=== PATIENT | female | born 1950 | race Caucasian/White ===

== ENCOUNTER → 2016-07-29 | Outpatient (CLI) | payer OTHER ==
[~2016-07-29] VITALS: Ht 157.5 cm; Wt 86.2 kg
[~2016-07-29] MED LIST: ACCUNEB0.63 MG/3 IH; ACETAMINOPHEN325 M1 PO; ACID CONTROL20 MG PO; ACIDOPHILUS1 EAC3 PO; ADVAIR 100-501 EACH INH; ADVAIR 100-501 EACH PO; ALBUTEROL NEB INH; ALBUTEROL2.5 MG/31 INH; ALLOPURINOL 10100 M1 PO; ATROVENT15 ML NS; AZITHROMYCIN 2250 MG PO; B-12 DOTS500 MCG PO; CALCIUM OYSTER500 MG PO; CEFDINIR300 MG PO; CENTRUM SILVER1 EAC1 PO; CIPRO500 MG PO; COLACE100 MG PO; CYMBALTA60 MG PO; DESYREL100 MG PO; ERYTHROMYCIN E3.5 G1 OPHTHALMIC; FAMOTIDINE20 MG PO; FERREX 150150 MG PO; FISHOIL; FLAGYL500 MG PO; GABAPENTIN PO; GAVILAX17 GM PO; HYDROCHLOROTH12.5 M1 PO; HYDROCODON-ACE1 EAC5 PO; HYDROCODON-ACE1 EAC8 PO; HYDROCODONE-AP1 EA12 PO; IRON325 PO; KEFLEX500 MG PO; LEVAQUIN 500 M500 M2 PO; LEVAQUIN 500 M500 M3 PO; LINZESS290 MCG PO; LIPITOR 10 MG10 M1 PO; LIPITOR20 MG PO; LISINOPRIL-HCT1 EACH PO; LISINOPRIL10 MG PO; MAGNESIUM GLUC250 MG PO; MAGNESIUM100 MG PO; MOM PO; NAPROSYN500 MG PO; NASONEX17 GM NASAL; NEFAZODONE HCL PO; NEFAZODONE HCL100 MG PO; NEFAZODONE HCL50 MG PO; NEFAZODONE PO; NEURONTIN 300300 M1 PO; NEURONTIN600 MG PO; NEXIUM 40 MG CA40 M1 PO; NEXIUM40 MG PO; NIFEREX100 MG/5 M PO; NORCO 10-325 T1 EACH PO; NORCO 5-325 TA1 EACH PO; OXCARBAZEPINE300 MG PO; OXYCODON-ACETA1 EACH PO; OXYCODONE HCL5 M1 PO; OXYCODONE-APAP1 EAC6 PO; PATANOL5 ML OPHTHALMIC; PERCOCET 7.5-51 EACH PO; PHENERGAN 25 MG25 M1 PO; POTASSIUM20; POTASSIUM20 PO; PREDNISONE 10 M10 M1; PREDNISONE 10 M10 M1 PO; PREDNISONE 20 M20 MG PO; PREMARIN0.3 MG PO; PRILOSEC 20 MG20 MG PO; PROAIR HFA8.5 GM INH; PROCRIT20000 UNIT IJ; SENNA PO; SINGULAIR 10 MG10 M1 PO; SINGULAIR PO; TOPAMAX 100 MG100 MG PO; TOPAMAX PO; TOPAMAX50 MG PO; TRAZODONE 150150 M1 PO; TRAZODONE HCL100 MG PO; TYLENOL325 MG PO; Trazodone PO; ULTRAM 50MG TAB50 MG PO; VALACYCLOVIR1000 MG PO; VITAMIN D 5050000 I1 PO; VITAMIN D1000 UNI1 PO; ZANAFLEX2 M1 PO; ZANAFLEX4 M1 PO; ZESTORETIC 10-1 EACH PO; ZPAK PO; ZYRTEC10 MG PO; [UNRECOGNIZED DRUG - OTHER] PO
--- NOTE | ~2016-07-29 | HPC ---
[facility] [address] [place] [address] PAIN MANAGEMENT CONSULTATION Name: MEERA SHEPARD [facility] [id number] Admission: 07/29/16 Attend Phys: Nile Leyva MD Discharge: Date of : 54 Report #: [id number] THIS REPORT FOR: //name// CC: Nile Dean DATE OF SERVICE: 07/29/2016 REASON FOR VISIT: Followup visit for chronic low back pain, post-laminectomy syndrome with radiculopathy. Multiple comorbidities. HISTORY OF PRESENT ILLNESS: The patient returns to the pain clinic today requesting an epidural injection. I provided her with injections on a periodic basis to help improve her daily activities and function. She received 3 injections in 2015. I had a long discussion with her today and her Medicaid-provided caregiver about the importance of daily activity. Movement is a sprague to remaining functional. I have encouraged her to daily walk and exercises and she has been given once again some simple exercises that she can perform, even chair exercises. She has a number of other comorbidities, so her activity level will be limited, but she should do her best to try not to be too sedentary, this will help her back and her leg pain. Pain currently in her back and legs is described as a level 7, chronic and aching. It is worse with walking, prolonged sitting, prolonged standing and activities. She gets relief with medication, resting and injections. PAST MEDICAL HISTORY: Significant for pseudotumor cerebri. She has had right hip replacement and has osteoarthritis in multiple joints including shoulders and hips. She is treated for hypertension, chronic kidney disease, COPD, asthma, obstructive sleep apnea, fibromyalgia, irritable bowel syndrome and diverticulitis. She is morbidly obese. REVIEW OF SYSTEMS: Positive for chronic constipation, limited activity, challenges with bowel and bladder function. She has not fallen recently and does not appear to be a current fall risk. She moves carefully. PHYSICAL EXAMINATION: GENERAL: The patient is 5 feet 2 inches, 190 pounds with a BMI of 34.7. Blood pressure is 134/77, heart rate is 81 and respirations are 20. She has mild inspiratory and expiratory wheezing. CARDIAC: Rhythm is regular. ABDOMEN: Morbidly obese and tender. She has diffuse tenderness across her low back, especially around her scar. Straight leg raising bilaterally reproduces radicular symptoms in a broad distribution into the legs. Sensation is intact. [facility] [address] [place] [address] PAIN MANAGEMENT CONSULTATION Name: MEERA SHEPARD [facility] #: [facility] [id number] Admission: 07/29/16 Attend Phys: Nile Leyva MD Discharge: Date of : 54 Report #: [id number] She is able to move from sitting to standing position, ambulate without a cane. She turns and pivots without fall signs. IMPRESSION: 1. Chronic intractable low back pain with radiculopathy. 2. Other pain generators including osteoarthritis of multiple joints, status post hip replacement, now complaining of pain in shoulders and knees. 3. History of fibromyalgia. 4. Chronic obstructive pulmonary disease. 5. Pseudotumor cerebri. 6. Chronic kidney disease. PLAN: I will repeat epidural injection under fluoroscopic guidance. Potential risks and benefits reviewed. She is anxious to proceed today given the improvement that she has had with previous shots. PROCEDURE: Epidural steroid injection, L2-L3. DESCRIPTION: After both written and informed consent to include risk of spinal cord damage, increased pain, weakness and dural puncture, the patient was taken to the fluoroscopy suite, placed in the prone position. After sterile prep and drape, a skin wheal with lidocaine was raised. A 20-gauge epidural Tuohy needle was inserted in the midline at L2-L3 with good loss to resistance. Negative aspiration for cerebrospinal fluid or blood was noted. Then 1 mL of Omnipaque under biplanar fluoroscopy showed good spread within the epidural space. I used 0.5% lidocaine 3 mL and 80 mg of triamcinolone. ____ It was removed. The patient was monitored for an appropriate period of time and discharged in good and stable condition. The patient tolerated the procedure well, there were no complications. She will be seen back in the clinic in 3 months. Prescriptions were provided for 3 hydrocodone 10/325 per day under terms of an opioid agreement. She was given gabapentin 300 mg at bedtime. Plan is for urine drug screen today as part of our opioid agreement. I will review and discuss further with her after results have been obtained. <ELECTRONICALLY SIGNED> By: Nile Leyva MD 08/29/16 1130 [id number] [id number] Nile Leyva MD /nt
[2016-07-29 08:15] VITALS: BP 134/77
[2016-08-03 11:09] LABS: EER PAIN MGT INTERP FINAL (())
== END | disposition home or self-care (01) ==
LOC: PAIN 07-22 07:44
PROVIDERS: Anesthesiology Pain Medicine
DX: M54.16 Radiculopathy, lumbar region (principal); M96.1 Postlaminectomy syndrome, not elsewhere classified; G89.29 Other chronic pain; M19.90 Unspecified osteoarthritis, unspecified site; I12.9 Hypertensive chronic kidney disease with stage 1 through stage 4 chronic kidney disease, or unspecified chronic kidney disease; N18.9 Chronic kidney disease, unspecified; J44.9 Chronic obstructive pulmonary disease, unspecified; G93.2 Benign intracranial hypertension; G47.33 Obstructive sleep apnea (adult) (pediatric); M79.7 Fibromyalgia; E66.01 Morbid (severe) obesity due to excess calories; Z68.34 Body mass index [BMI] 34.0-34.9, adult; Z87.891 Personal history of nicotine dependence; Z96.641 Presence of right artificial hip joint

== ENCOUNTER 2016-10-17 15:44 | Emergency (ER) | payer OTHER ==
[~2016-10-17] VITALS: Ht 157.5 cm; Wt 86.2 kg
[2016-10-17] MEDS ORDERED: NORCO 5-325 TA1 EACH PO (18:19)
[2016-10-17 18:53] VITALS: BP 105/65
== END 2016-10-17 18:55 | disposition home or self-care (01) ==
LOC: ER 15:44
DX: S16.1XXA Strain of muscle, fascia and tendon at neck level, initial encounter (principal); M25.561 Pain in right knee; M25.562 Pain in left knee; M25.511 Pain in right shoulder; M25.512 Pain in left shoulder; I12.9 Hypertensive chronic kidney disease with stage 1 through stage 4 chronic kidney disease, or unspecified chronic kidney disease; N18.4 Chronic kidney disease, stage 4 (severe); J44.9 Chronic obstructive pulmonary disease, unspecified; G47.33 Obstructive sleep apnea (adult) (pediatric); M19.90 Unspecified osteoarthritis, unspecified site; M79.7 Fibromyalgia; G89.4 Chronic pain syndrome; K58.9 Irritable bowel syndrome, unspecified; Z90.49 Acquired absence of other specified parts of digestive tract; Z90.722 Acquired absence of ovaries, bilateral; Z90.89 Acquired absence of other organs; Z90.710 Acquired absence of both cervix and uterus; Z88.0 Allergy status to penicillin; Z88.1 Allergy status to other antibiotic agents; Z88.6 Allergy status to analgesic agent; Z88.8 Allergy status to other drugs, medicaments and biological substances; Z88.2 Allergy status to sulfonamides; Z87.891 Personal history of nicotine dependence; W19.XXXA Unspecified fall, initial encounter; Y93.89 Activity, other specified; Y92.009 Unspecified place in unspecified non-institutional (private) residence as the place of occurrence of the external cause; Y99.9 Unspecified external cause status

== ENCOUNTER → 2016-11-05 | Outpatient (CLI) | payer OTHER ==
[~2016-11-05] VITALS: Ht 157.5 cm; Wt 91.5 kg
[~2016-11-05] MED LIST changes: +OXYCODONE-ACET1 EAC2 PO
--- NOTE | ~2016-11-05 | HPC ---
[facility] [address] [place] [address] PAIN MANAGEMENT CONSULTATION Name: MEERA SHEPARD [facility]: [facility] [id number] Admission: 11/05/16 Attend Phys: Nile Leyva MD Discharge: Date of : 54 Report #: [id number] THIS REPORT FOR: //name// CC: Nile Dean DATE OF SERVICE: 11/05/2016 Followup visit for chronic intractable low back pain with radiculopathy. The patient returns to pain clinic today complaining primarily bilateral shoulder pain. She has severe osteoarthritis of multiple joints; the shoulders are very much limiting her activities of daily living. She scores it as a 9-10/10. She is on multiple medications including gabapentin, oxycodone, which we provide her under terms of the agreement. Urine drug screen has been reviewed from her last visit and is appropriate for medication. Most of her pain today in her shoulders is limiting her ability to perform simple activities of daily living with internal and external rotation. She is not a surgical candidate. PHYSICAL EXAMINATION: Morbidly obese female, BMI of 36.9. Blood pressure 144/72, heart rate 82, respirations 20. She has pain in both shoulders with tenderness and crepitus. The internal and external rotation are performed only to 50%. She is unable to abduct her arms without severe pain. Creative Specialist strength, biceps strength are reduced. She has difficulty with pushing maneuvers as well, affecting her triceps muscle. IMPRESSION: 1. Chronic intractable pain with multiple pain generators including low back with radiculopathy and pain generators include osteoarthritis of multiple joints, bilateral shoulders, knees and hips. Today, her shoulders are most predominant. 2. Fibromyalgia. 3. Chronic obstructive pulmonary disease. 4. Pseudotumor cerebri. 5. Chronic kidney disease. RECOMMENDATION: Bilateral shoulder injections. PROCEDURE: Skin was prepped with ChloraPrep first on the left, a 25-gauge needle advanced into the shoulder joint easily. After negative aspiration, I injected 4 mL of 0.5% bupivacaine mixed with 40 mg triamcinolone. Needle was removed. I then injected the opposite shoulder with the similar technique. She [facility] [address] [place] [address] PAIN MANAGEMENT CONSULTATION Name: MEERA SHEPARD [facility] #: [facility] [id number] Admission: 11/05/16 Attend Phys: Nile Leyva MD Discharge: Date of : 54 Report #: [id number] tolerated the injections well and pain was reduced by over 75% at discharge. Followup visit is planned as needed. By: [id number] Nile Leyva MD /nt
[2016-11-05 08:43] VITALS: BP 144/72
== END | disposition home or self-care (01) ==
LOC: PAIN 07:00
DX: M19.012 Primary osteoarthritis, left shoulder (principal); M19.011 Primary osteoarthritis, right shoulder; G89.29 Other chronic pain; M54.16 Radiculopathy, lumbar region; M17.0 Bilateral primary osteoarthritis of knee; M16.0 Bilateral primary osteoarthritis of hip; M79.7 Fibromyalgia; J45.909 Unspecified asthma, uncomplicated; J44.9 Chronic obstructive pulmonary disease, unspecified; N18.9 Chronic kidney disease, unspecified; G93.2 Benign intracranial hypertension; F11.20 Opioid dependence, uncomplicated; E66.01 Morbid (severe) obesity due to excess calories; Z68.36 Body mass index [BMI] 36.0-36.9, adult; Z87.891 Personal history of nicotine dependence

== ENCOUNTER → 2016-11-05 | Outpatient (CLI) | payer OTHER ==
[2016-11-05 10:00] VITALS: BP 118/67
[2016-11-05 10:15] LABS: HEMATOCRIT 29.1 % (37.0-47.0); HEMOGLOBIN 9.9 gm/dL (12.0-15.0)
[2016-11-05 10:25] LABS: CALCIUM 8.9 mg/dL (8.5-10.1); POTASSIUM 4.2 mmol/L (3.5-5.1)
[2016-11-05 10:28] LABS: PHOSPHORUS 3.8 mg/dL (2.5-4.9)
== END ==
LOC: OPONC 06:26
PROVIDERS: Hospitalist
DX: N18.3 Chronic kidney disease, stage 3 (moderate) (principal); D63.1 Anemia in chronic kidney disease
CPT/HCPCS: 95112

== ENCOUNTER → 2016-11-30 | Outpatient (CLI) | payer OTHER | LOC: MRI 08:58 | DX: M75.102 Unspecified rotator cuff tear or rupture of left shoulder, not specified as traumatic (principal); S46.011A Strain of muscle(s) and tendon(s) of the rotator cuff of right shoulder, initial encounter; X58.XXXA Exposure to other specified factors, initial encounter; Y93.89 Activity, other specified; Y92.89 Other specified places as the place of occurrence of the external cause; Y99.8 Other external cause status ==

== ENCOUNTER → 2016-12-10 | Outpatient (CLI) | payer OTHER ==
[2016-12-10 09:27] LABS: HEMATOCRIT 34.9 % (37.0-47.0); HEMOGLOBIN 11.5 gm/dL (12.0-15.0)
[2016-12-10 09:53] LABS: % SATURATION 33 % (20-39); IRON 74 ug/dL (50-170); TIBC 222 ug/dL (250-450); UIBC 148 ug/dL
== END ==
LOC: OPONC 06:22
PROVIDERS: Hospitalist
DX: N18.3 Chronic kidney disease, stage 3 (moderate) (principal)

== ENCOUNTER 2017-01-01 15:43 | Emergency (ER) | payer OTHER ==
[~2017-01-01] VITALS: Ht 157.5 cm; Wt 86.2 kg
[2017-01-01 16:42] LABS: URINE BLOOD NEGATIVE (Negative); URINE COLOR YELLOW; URINE GLUCOSE-RANDOM* NEGATIVE (Negative); URINE KETONES TRACE (Negative); URINE NITRITE NEGATIVE (Negative); URINE PROTEIN (DIPSTICK) NEGATIVE (Negative); URINE SPECIFIC GRAVITY 1.025 (1.003-1.035); URINE UROBILINOGEN 0.2 E.U./dl (0.2-1.0)
[2017-01-01 16:44] LABS: URINE BILIRUBIN NEGATIVE (Negative)
[2017-01-01 17:03] LABS: SQUAMOUS 4-10 Moderate /LPF (0-3)
[2017-01-01 17:04] LABS: BACTERIA 1-9 Few /HPF (None Seen); CRYSTALS None Seen /LPF (None Seen); URINE RBC None Seen /HPF (0-2); URINE WBC 0-5 Rare /HPF (0-5)
[2017-01-01 17:05] LABS: CASTS None Seen /LPF (None Seen)
[2017-01-01 17:07] LABS: ABSOLUTE NEUTROPHILS 4.9 thou/uL (1.4-8.2); BASOPHILS 0.9 % (0.0-2.0); EOSINOPHILS 7.7 % (0.0-3.0); HEMATOCRIT 33.9 % (37.0-47.0); HEMOGLOBIN 11.2 gm/dL (12.0-15.0); LYMPHOCYTES 17.9 % (24.0-44.0); MCH 33.2 pg (26.0-34.0); MCHC 33.1 g/dL (28.0-37.0); MCV 100.3 fL (80.0-100.0); MONOCYTES 6.9 % (1.0-8.0); PLATELET COUNT 244 thou/uL (150-400); POLYS 66.6 % (36.0-66.0); RBC 3.38 mil/uL (4.20-5.00); RDW 14.5 % (10.5-14.5); WBC 7.4 thou/uL (4.0-11.0)
[2017-01-01 17:09] LABS: MANUAL DIFF NO
[2017-01-01 17:15] LABS: CALCIUM 9.3 mg/dL (8.5-10.1); POTASSIUM 4.4 mmol/L (3.5-5.1)
[2017-01-01 17:19] LABS: ALBUMIN 3.3 g/dL (3.4-5.0); TOTAL BILIRUBIN 0.3 mg/dL (<0.1-1.0); TOTAL PROTEIN 6.7 g/dL (6.4-8.2)
[2017-01-01] MEDS ORDERED: KEFLEX500 MG PO (18:36)
[2017-01-01 19:07] VITALS: BP 115/55
== END 2017-01-01 19:08 | disposition home or self-care (01) ==
LOC: ER 15:43
PROVIDERS: Nurse Practitioner Family
DX: K59.00 Constipation, unspecified (principal); N39.0 Urinary tract infection, site not specified; J45.909 Unspecified asthma, uncomplicated; J44.9 Chronic obstructive pulmonary disease, unspecified; I12.9 Hypertensive chronic kidney disease with stage 1 through stage 4 chronic kidney disease, or unspecified chronic kidney disease; N18.4 Chronic kidney disease, stage 4 (severe); Z96.641 Presence of right artificial hip joint; Z90.49 Acquired absence of other specified parts of digestive tract; Z90.722 Acquired absence of ovaries, bilateral; Z90.710 Acquired absence of both cervix and uterus; M19.90 Unspecified osteoarthritis, unspecified site; Z98.890 Other specified postprocedural states; Z87.891 Personal history of nicotine dependence; Z88.1 Allergy status to other antibiotic agents; Z88.0 Allergy status to penicillin; Z88.2 Allergy status to sulfonamides; Z88.8 Allergy status to other drugs, medicaments and biological substances; Z88.7 Allergy status to serum and vaccine

== ENCOUNTER 2017-01-11 08:38 | Inpatient (IN) | payer OTHER ==
[~2017-01-11] VITALS: Ht 157.5 cm; Wt 96.6 kg
--- NOTE | ~2017-01-11 | 2DMMODE ---
[facility] [address] [place] [address] 2 D/M-MODE ECHOCARDIOGRAM Name: DEVYNDARYLBETH Rhoades Room #: 456-P ADM IN M.R.#: [id number] Admission: 01/11/17 Attend Phys: Verona Barajas Discharge: Date of : 54 Date of Service: 01/12/17 1247 Report #: [id number] THIS REPORT FOR: //name// APPROVED REPORT Study performed: 01/12/2017 10:24:41 EXAM: Comprehensive 2D, Doppler, and color-flow Echocardiogram Patient Location: Echo lab Room #: [facility] Status: routine Other Information Study Quality: Adequate/low parasternal window. Indications Chest pain. Hx: COPD, HTN 2D Dimensions RVDd: 31.92 mm LVEF(%): 79.59 (>50%) IVSd: 9.70 (7-11mm) LVOT Diam: 19.87 (18-24mm) LVDd: 47.41 mm PWd: 10.89 (7-11mm) LVDs: 24.55 (25-40mm) Aortic Root: 34.29 mm Gonzalez's LVEF: 79.59 % Volumes Left Atrial Volume (Systole) Single Plane 4CH: 53.92 mL Single Plane 2CH: 34.55 mL LA ESV Index: 26.00 mL/m2 Aortic Valve AoV Peak Jacob.: 1.67 m/s AO Peak Gr.: 11.12 mmHg LVOT Max P.85 mmHg LVOT Max V: 1.49 m/s BELEN Vmax: 2.77 cm2 Mitral Valve E/A Ratio: 0.6 MV Decel. Time: 345.98 ms MV E Max Jacob.: 0.69 m/s MV A Jacob.: 1.09 m/s MV PHT: 100.34 ms IVRT: 96.89 ms [facility] [place] [address] 2 D/M-MODE ECHOCARDIOGRAM Name: MEERA SHEPARD Room #: 456-P [facility].#: [id number] Admission: 01/11/17 Attend Phys: Verona Barajas Discharge: Date of : 54 Date of Service: 01/12/17 1247 Report #: [id number] Pulmonary Valve PV Peak Jacob.: 1.24 m/s PV Peak Gr.: 6.14 mmHg Pulmonary Vein P Vein S: 0.66 m/s P Vein A: 0.41 m/s P Vein D: 0.51 m/s P Vein A Dur.: 138.4 msec P Vein S/D Ratio: 1.29 Tricuspid Valve RAP Estimate: 5.00 mmHg Left Ventricle The left ventricle is normal size. There is normal LV segmental wall motion. There is normal left ventricular wall thickness. Left ventricular systolic function is normal. LVEF is 60-65%. Grade I - abnormal relaxation pattern. Right Ventricle The right ventricle is normal size. The right ventricular systolic function is normal. Atria Left atrium is dilated. The right atrium size is normal. Aortic Valve Aortic valve is mildly calcified, trileaflet. No aortic regurgitation is present. There is no aortic valvular stenosis. Mitral Valve The mitral valve is normal in structure. Trace mitral regurgitation. No evidence of mitral valve stenosis. Tricuspid Valve The tricuspid valve is normal in structure. There is no tricuspid valve regurgitation noted. Pulmonic Valve The pulmonary valve is normal in structure. Trace pulmonic regurgitation. Great Vessels The aortic root is normal in size. Ascending aorta is not well visualized. IVC is normal in size and collapses >50% with inspiration. [facility] [address] [place] [address] 2 D/M-MODE ECHOCARDIOGRAM Name: MEERA SHEPARD Room #: 456-P [facility] IN ..#: [id number] Admission: 01/11/17 Attend Phys: Verona Barajas Discharge: Date of : 54 Date of Service: 01/12/17 1247 Report #: [id number] Pericardium There is no pericardial effusion. <Conclusion> Left ventricular systolic function is normal. There is normal LV segmental wall motion. LVEF is 60-65%. Grade I diastolic dysfunction Aortic valve is mildly calcified, trileaflet. No aortic regurgitation or stenosis The mitral valve is normal in structure. Trace mitral regurgitation. Pulmonary artery pressure could not be reliably ascertained There is no pericardial effusion. <ELECTRONICALLY SIGNED> By: Cisco Bartholomew MD, FACC 01/12/17 [phone] 46 Cisco Bartholomew MD, FACC /INF
--- NOTE | ~2017-01-11 | EKG ---
[place] [address] [facility] [employer] [place] [address] ELECTROCARDIOGRAM REPORT Name: MEERA SHEPARD Room #: 456-P ADM IN M.R.#: [id number] Admission: 01/11/17 Attend Phys: Evan Rossi MD Discharge: Date of : 54 Report #: [id number] THIS REPORT FOR: //name// [facility] ED Test Date: 2017-01-11 Test Time: 09:10:41 Pat Name: MEERA SHEPARD Department: Room: [facility] Gender: F Carpet Binder: DORINA Schwartz : 1950 Requested By: Evelyn Dumont Order Number: [id number] MD: Cisco Bartholomew Measurements Intervals [place] Rate: 74 P: 13 FL: 171 QRS: -29 QRSD: 88 T: 47 QT: 368 QTc: 409 Interpretive Statements Sinus rhythm Borderline left axis deviation Low voltage, extremity leads Compared to ECG 01/12/2016 23:29:25 No significant changes Electronically Signed On 01-12-2017 7:51:23 CDT by Cisco Bartholomew [email or web address] <ELECTRONICALLY SIGNED> By: Cisco Bartholomew MD, [facility] 01/12/17 0751 9 9 Cisco Bartholomew MD, [facility] /EPI
--- NOTE | ~2017-01-11 | HC ---
[facility] [place] [address] CONSULTATION Name: MEERA SHEPARD Room #: 456-P ADM IN M.R.#: [id number] Admission: 01/11/17 Attend Phys: Evan Rossi MD Discharge: Date of : 54 Report #: [id number] THIS REPORT FOR: //name// CC: Evan Dean DATE OF SERVICE: 01/11/2017 HISTORY OF PRESENT ILLNESS: The patient is a 66-year-old female who was admitted with a squeezing, gripping sort of chest pain, which have been on and off for the last couple of weeks. She was seen by Dr. Dean in the past. She went to the dermatology clinic this morning and subsequently to [facility] for urgent care with chest pain and sent to the emergency room and subsequently admitted. There has been some mild shortness of breath associated with this, not really much of an exertional component, but she is markedly overweight and a very sedentary lifestyle. There was some question of radiation to the jaw. She has never had a cardiac history and never seen cardiology before. The EKG has nonspecific changes. Her enzymes are negative. She denies PND or orthopnea. She has never had any kind of a stress test, which is somewhat surprising. No other real associated symptoms and as I stated, a very sedentary lifestyle. MEDICATIONS: She is maintained on gabapentin, Zyrtec, oxycodone, Lipitor 10, Cymbalta, tizanidine, Topamax, trazodone 100 mg at night, nefazodone, Nexium 40, lisinopril/HCT 10/12.5, Linzess, vitamin D, and Singulair. PAST MEDICAL HISTORY: Positive for hypertension, hypercholesterolemia, obesity, pseudotumor cerebri with lumbar-peritoneal shunts, followed by Dr. 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 SOCIAL HISTORY: She is . She has two children, they are in their 40s. 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 She does not drive. Prior tobacco user, quit 20 years ago. No alcohol use. FAMILY HISTORY: Negative for premature coronary disease. LABORATORY WORK: Sodium 140, potassium 4.1, and creatinine 2.0. Troponins are negative. H and H are 11.8 and 35.2 and white count 7.0. BNP was only 231. ALLERGIES: PENICILLIN, TETRACYCLINE, NSAIDS, MECLIZINE, SULFA, TETANUS, LEVAQUIN, CIPRO. PHYSICAL EXAMINATION: VITAL SIGNS: Blood pressure 132/60 and pulse 70s. [address] [address] CONSULTATION Name: MEERA SHEPARD Room #: 456-P [facility] IN M.R.#: [id number] Admission: 01/11/17 Attend Phys: Evan Rossi MD Discharge: Date of : 54 Report #: [id number] HEENT: Eyes reveal xanthelasmas. Pharynx is clear. NECK: Shows preserved upstrokes without JVD or bruits. LUNGS: Show prolonged expiratory phase, but clear. CARDIAC: Regular rate and rhythm, S1, S2 distant. ABDOMEN: Obese, nontender. EXTREMITIES: Reveal 1 to 2+ edema. Distal pulses diminished. NEUROLOGIC: Nonfocal. SKIN: Warm and dry without xanthoma or ulcer. MUSCULOSKELETAL: Valgus deformity of the knees. I did not ambulate her. ASSESSMENT: 1. Chest pain of unclear etiology, negative enzymes and EKG. 2. Morbid obesity. 3. Hypertension. 4. Hypercholesterolemia. 5. Chronic kidney disease stage 4, creatinine 2.0. 6. Reflux. 7. Degenerative joint disease. 8. Sleep apnea. RECOMMENDATIONS AND PLAN: [place] ruled out. We would proceed with echo Doppler and nuclear stress testing in the a.m. Hemodynamically, she appears to be stable. She states she has been coughing a lot with an asthma exacerbation and so certainly, may be this chest pain could be attributable to this. She states she has been coughing for weeks. We will discuss the above with primary ____ multiple risk factors for coronary disease. We will proceed with pharmacologic nuclear stress test and echo Doppler in the a.m. Thank you for asking us to assist in the care of this patient. By: [id number] Keegan Bhandari MD, FACC /nt
[2017-01-11 08:39] VITALS: BP 159/62
[2017-01-11 09:15] LABS: HEMATOCRIT 35.2 % (37.0-47.0); HEMOGLOBIN 11.8 gm/dL (12.0-15.0); MCH 33.4 pg (26.0-34.0); MCHC 33.4 g/dL (28.0-37.0); MCV 99.9 fL (80.0-100.0); RBC 3.52 mil/uL (4.20-5.00); RDW 14.2 % (10.5-14.5)
[2017-01-11] MEDS ORDERED: LINZESS72 MCG PO (09:19)
[2017-01-11] MEDS ORDERED: VITAMIN D 5050000 I1 PO (09:19)
[2017-01-11 09:26] LABS: ANION GAP 8 mmol/L (7-16); BUN 23 mg/dL (7-18); CALCIUM 9.7 mg/dL (8.5-10.1); CHLORIDE 108 mmol/L (98-107); CO2 24 mmol/L (21-32); GLUCOSE 115 mg/dL (74-106); POTASSIUM 4.1 mmol/L (3.5-5.1); SODIUM 140 mmol/L (136-145)
[2017-01-11 09:37] LABS: ALBUMIN 3.4 g/dL (3.4-5.0); ALKALINE PHOSPHATASE 96 U/L (46-116); NT-PRO BRAIN NAT PEPTIDE 231 pg/mL (<300); SGOT 21 U/L (15-37); SGPT 26 U/L (30-65); TOTAL BILIRUBIN 0.4 mg/dL (<0.1-1.0); TOTAL PROTEIN 6.9 g/dL (6.4-8.2); TROPONIN-I < 0.04 ng/mL (<0.04-0.07)
[2017-01-11 10:35] VITALS: BP 107/56
[2017-01-11 11:58] VITALS: BP 130/55
[2017-01-11 15:54] VITALS: BP 132/52
[2017-01-11 23:59] VITALS: BP 124/56
[2017-01-12 04:19] VITALS: BP 109/49
[2017-01-12 06:22] LABS: ANION GAP 9 mmol/L (7-16); BUN 29 mg/dL (7-18); CALCIUM 9.1 mg/dL (8.5-10.1); CHLORIDE 108 mmol/L (98-107); CHOLESTEROL 190 mg/dL (<200); CO2 25 mmol/L (21-32); CREATININE 2.1 mg/dL (0.6-1.0); GLUCOSE 94 mg/dL (74-106); HDL CHOLESTEROL 69 mg/dL (>40); LDL CHOLESTEROL 107 mg/dL (<100); POTASSIUM 4.3 mmol/L (3.5-5.1); SODIUM 142 mmol/L (136-145); TC:HDL 2.8 Ratio (Not establshd); TRIGLYCERIDE 73 mg/dL (<150); VLDL 15 mg/dL (<40)
[2017-01-12 06:23] LABS: SERUM ASSESSMENT Clear
[2017-01-12 08:52] VITALS: BP 143/94
[2017-01-12 12:02] VITALS: BP 140/66
[2017-01-12 16:07] VITALS: BP 135/89
[2017-01-12 20:19] VITALS: BP 106/58
[2017-01-12 23:21] VITALS: BP 117/54
[2017-01-13 03:22] VITALS: BP 103/51
[2017-01-13 04:00] VITALS: BP 94/45
[2017-01-13 07:58] VITALS: BP 89/49
[2017-01-13 11:02] VITALS: BP 91/49
[2017-01-13 12:48] VITALS: BP 91/49
== END 2017-01-13 14:21 | disposition home or self-care (01) | DRG 206 ==
LOC: ER 08:38 → EROBS 09:49 → 4W 09:49
PROVIDERS: Nurse Practitioner; Physician Assistant
PROC: 5A09357 Assistance with Respiratory Ventilation, Less than 24 Consecutive Hours, Continuous Positive Airway Pressure (ICD-10-PCS; principal; 2017-01-11)
DX: M94.0 Chondrocostal junction syndrome [Tietze] (principal); N18.4 Chronic kidney disease, stage 4 (severe); K59.09 Other constipation; F41.9 Anxiety disorder, unspecified; E78.00 Pure hypercholesterolemia, unspecified; E66.01 Morbid (severe) obesity due to excess calories; J44.9 Chronic obstructive pulmonary disease, unspecified; I12.9 Hypertensive chronic kidney disease with stage 1 through stage 4 chronic kidney disease, or unspecified chronic kidney disease; G47.33 Obstructive sleep apnea (adult) (pediatric); M19.90 Unspecified osteoarthritis, unspecified site; G89.4 Chronic pain syndrome; K58.9 Irritable bowel syndrome, unspecified; Z96.641 Presence of right artificial hip joint; Z87.891 Personal history of nicotine dependence; Z88.0 Allergy status to penicillin; Z88.1 Allergy status to other antibiotic agents; Z88.6 Allergy status to analgesic agent; Z88.2 Allergy status to sulfonamides; Z88.8 Allergy status to other drugs, medicaments and biological substances; Z87.81 Personal history of (healed) traumatic fracture; Z68.38 Body mass index [BMI] 38.0-38.9, adult; Z79.82 Long term (current) use of aspirin; Z79.899 Other long term (current) drug therapy; Z90.49 Acquired absence of other specified parts of digestive tract; Z90.722 Acquired absence of ovaries, bilateral; Z90.710 Acquired absence of both cervix and uterus; Z82.49 Family history of ischemic heart disease and other diseases of the circulatory system
CPT/HCPCS: 10045

== ENCOUNTER → 2017-02-01 | Outpatient (CLI) | payer OTHER ==
[~2017-02-01] VITALS: Ht 157.5 cm; Wt 97.1 kg
[~2017-02-01] MED LIST changes: +LINZESS72 MCG PO
[2017-02-01 09:58] VITALS: BP 135/71
== END | disposition home or self-care (01) ==
LOC: PAIN 06:48
DX: M19.011 Primary osteoarthritis, right shoulder (principal); M19.012 Primary osteoarthritis, left shoulder; G89.29 Other chronic pain; G93.2 Benign intracranial hypertension; M79.7 Fibromyalgia; N18.3 Chronic kidney disease, stage 3 (moderate); J44.9 Chronic obstructive pulmonary disease, unspecified; F11.20 Opioid dependence, uncomplicated; Z88.0 Allergy status to penicillin; Z88.8 Allergy status to other drugs, medicaments and biological substances; Z79.899 Other long term (current) drug therapy; Z98.890 Other specified postprocedural states

== ENCOUNTER → 2017-02-18 | Outpatient (CLI) | payer OTHER ==
[~2017-02-18] MED LIST changes: +PROCRIT 1010000 U/M1 IJ
[2017-02-18 08:00] VITALS: BP 111/54
[2017-02-18 08:47] LABS: HEMATOCRIT 31.3 % (37.0-47.0); HEMOGLOBIN 10.5 gm/dL (12.0-15.0)
[2017-02-18 09:08] LABS: % SATURATION 36 % (20-39); IRON 79 ug/dL (50-170); TIBC 221 ug/dL (250-450); UIBC 142 ug/dL
== END ==
LOC: OPONC 02:23 → EDSTATUS 09:30 → OPONC 15:56
PROVIDERS: Hospitalist
DX: N18.9 Chronic kidney disease, unspecified (principal); D63.1 Anemia in chronic kidney disease
CPT/HCPCS: 95112

== ENCOUNTER → 2017-04-05 | Outpatient (CLI) | payer OTHER ==
[~2017-04-05] VITALS: Ht 157.5 cm; Wt 95.3 kg
[~2017-04-05] MED LIST changes: +REMERON15 MG PO; +ROXICODONE5 M2 PO
--- NOTE | ~2017-04-05 | HPC ---
[facility] [address] [place] [address] PAIN MANAGEMENT CONSULTATION Name: MEERA SHEPARD Room #: REG [facility] Kizzy.#: [id number] Admission: 04/05/17 Attend Phys: Nile Leyva MD Discharge: Date of : 54 Report #: [id number] THIS REPORT FOR: //name// CC: Camille Pacheco DATE OF SERVICE: 04/05/2017 REASON FOR VISIT: Followup visit for chronic pain. HISTORY OF PRESENT ILLNESS: The patient is a longstanding patient. She comes in today in a wheelchair for evaluation and treatment of shoulder pain. She has responded well in the past shoulder injections with up to 3-6 months of relief. Last injection performed in my clinic, however, was just in January with only limited improvement. I have agreed to provide one more injection today. She remains on medication from our clinic under terms of an opioid agreement. I have agreed to provide her with oxycodone 5 mg twice a day. This is a total of morphine milligram equivalency of 15 mg per day, quite low and within the guidelines of CDC. In addition, she uses gabapentin 300 mg tablets 1 at bedtime. The patient has multiple underlying issues. She has become a fall risk and has fallen tripping on her oxygen tripping twice in the last month. She has difficulty with ADLs. One of her biggest issues is the inability to use her left dominant arm. She has recently had continued decline in her renal function. She has been getting Procrit injections and has not started diagnosis. There is no question that much of her difficulty is related to her COPD and her obesity. She is morbidly obese, and it is difficult for her to be mobile. PHYSICAL EXAMINATION: VITAL SIGNS: Her BMI is 38.4, blood pressure 119/61, heart rate 76. GENERAL: She is pleasant but appears to be in discomfort today. Cervical range of motion is within normal limits. CHEST: Reveals distant breath sounds. CARDIAC: Rhythm is regular. EXTREMITIES: Examination of the shoulders reveals pain with internal and external rotation and abduction. There is generalized weakness throughout the deltoid, biceps and triceps on the left. Localized tenderness in the acromioclavicular joint. [facility] [address] [place] [address] PAIN MANAGEMENT CONSULTATION Name: MEERA SHEPARD Room #: REG [facility]#: [id number] Admission: 04/05/17 Attend Phys: Nile Leyva MD Discharge: Date of : 54 Report #: [id number] IMPRESSION: Osteoarthritis, left shoulder. PROCEDURE: Injection of left shoulder with bupivacaine and 40 mg of triamcinolone. INFORMED CONSENT: The patient was placed in the sitting position. Skin was prepped with ChloraPrep, and a 25-gauge, 2-inch needle was used to perform the injection. I injected a total of 6 mL of 0.5% bupivacaine mixed with 40 mg of triamcinolone. She tolerated the procedure well. Pain was reduced at discharge. Follow up as needed. By: [id number] Nile Leyva MD /nt
[2017-04-05 08:34] LABS: HEMOGLOBIN 10.1 gm/dL (12.0-15.0)
[2017-04-05 08:48] LABS: ALBUMIN 2.9 g/dL (3.4-5.0); CALCIUM 9.1 mg/dL (8.5-10.1); POTASSIUM 3.9 mmol/L (3.5-5.1)
[2017-04-05 10:46] VITALS: BP 119/61
[2017-04-05 15:24] VITALS: BP 97/51
== END | disposition home or self-care (01) ==
LOC: PAIN 03-18 07:32
PROVIDERS: Hospitalist
DX: M19.012 Primary osteoarthritis, left shoulder (principal); Z87.891 Personal history of nicotine dependence
CPT/HCPCS: 95112

== ENCOUNTER → 2017-04-19 | Outpatient (CLI) | payer OTHER ==
[2017-04-19 08:15] VITALS: BP 116/54
== END ==
LOC: OPONC 03-18 09:08
DX: N18.4 Chronic kidney disease, stage 4 (severe) (principal); D63.1 Anemia in chronic kidney disease
CPT/HCPCS: 95112

== ENCOUNTER → 2017-05-03 | Outpatient (CLI) | payer OTHER ==
[2017-05-03 07:50] VITALS: BP 1268/75
[2017-05-03 08:08] LABS: HEMATOCRIT 33.5 % (37.0-47.0); HEMOGLOBIN 11.1 gm/dL (12.0-15.0)
[2017-05-03 08:20] LABS: % SATURATION 28 % (20-39); IRON 64 ug/dL (50-170); TIBC 225 ug/dL (250-450); UIBC 161 ug/dL
== END ==
LOC: OPONC 01-11 06:19
PROVIDERS: Hospitalist
DX: N18.4 Chronic kidney disease, stage 4 (severe) (principal); D63.1 Anemia in chronic kidney disease
CPT/HCPCS: 91016

== ENCOUNTER → 2017-08-02 | Outpatient (CLI) | payer OTHER ==
[~2017-08-02] MED LIST changes: +CENTRUM SILVER1 EAC4 PO; +CLEOCIN HCL150 MG PO; +DURAGESIC1 EACH TRANSDERM; +FIRVANQ50 MG/1 ML PO; +GLUCOSAMINE CH1 EAC2 PO; +LASIX 20 MG TAB20 MG PO; -NEFAZODONE HCL100 MG PO; +NEFAZODONE HCL200 MG PO; +OXYCODONE-ACET1 EACH PO; +PERCOCET 10-321 EACH PO; +VALACYCLOVIR500 MG PO; +VANCOCIN 250 M250 M1 PO; +VANCOMYCIN HCL125 MG PO; +VENTOLIN HFA 1818 GM INH; +VITAMIN D50000 UNIT PO
[2017-08-02 09:40] VITALS: BP 120/37
[2017-08-02 09:51] LABS: HEMATOCRIT 30.3 % (37.0-47.0); HEMOGLOBIN 9.8 gm/dL (12.0-15.0)
[2017-08-02 10:04] LABS: % SATURATION 32 % (20-39); ALBUMIN 2.7 g/dL (3.4-5.0); CALCIUM 9.2 mg/dL (8.5-10.1); CREATININE 1.9 mg/dL (0.6-1.0); IRON 54 ug/dL (50-170); PHOSPHORUS 3.3 mg/dL (2.5-4.9); POTASSIUM 3.6 mmol/L (3.5-5.1); TIBC 170 ug/dL (250-450)
== END ==
LOC: OPONC 00:40
PROVIDERS: Hospitalist
DX: N18.4 Chronic kidney disease, stage 4 (severe) (principal); D63.1 Anemia in chronic kidney disease
CPT/HCPCS: 95112

== ENCOUNTER 2017-08-27 14:51 | Inpatient (IN) | payer OTHER ==
[~2017-08-27] VITALS: Ht 157.5 cm; Wt 104.8 kg
--- NOTE | ~2017-08-27 | HC ---
[facility] [place] [address] CONSULTATION Name: MEERA SHEPARD Room #: 422-P ADM IN M.R.#: [id number] Admission: 08/27/17 Attend Phys: Jordon Crandall DO Discharge: Date of : 54 Report #: [id number] THIS REPORT FOR: //name// CC: Jonathan Dean DATE OF SERVICE: 08/28/2017 HISTORY OF PRESENT ILLNESS: The patient is a 67-year-old female who reports approximately 2-week history of chronic diarrhea. This is also associated with intermittent crampy abdominal pain. She denies any blood in her stools. Last colonoscopy was by Dr. Raffi Harrison in 2012. Prep was fair at that time, but other than diverticulosis was negative. She denies any fevers or chills. She is having up to 10 loose stools per day. Apparently, one of her grandkids had a recent gastroenteritis. She does have a previous history of irritable bowel syndrome and constipation. She denies any fevers or chills currently. No chest pain, shortness of breath. CT scan of the abdomen and pelvis on admission shows diffuse thickening involving multiple segments of the colon suggestive of a colitis. Multiple diverticula in the proximal sigmoid region, but no diverticulitis. PAST MEDICAL HISTORY: Pseudotumor cerebri, lumbar peritoneal shunt, history of hypertension, obesity, hypercholesterolemia, previous right total hip, hysterectomy, previous cholecystectomy, chronic renal insufficiency, COPD, sleep apnea, fibromyalgia, irritable bowel syndrome, plantar fasciitis, tibial plateau fracture, previous history of diverticulitis. REVIEW OF SYSTEMS: As per HPI. SOCIAL HISTORY: She denies any tobacco or alcohol use. FAMILY HISTORY: Negative for colon cancer. ALLERGIES: Multiple including PENICILLIN, TETRACYCLINE, LEVAQUIN, TETANUS, SULFA, MECLIZINE, INDOMETHACIN, IBUPROFEN, CIPROFLOXACIN. REVIEW OF SYSTEMS: As per HPI. MEDICATIONS ON ADMISSION: Cymbalta, Lipitor, Topamax, Zanaflex, Neurontin, Linzess, lisinopril, Nexium, nefazodone, allopurinol, trazodone, Geodon. PHYSICAL EXAMINATION: VITAL SIGNS: Temperature is 97.9, pulse 100, blood pressure 132/75, respiratory rate is 18. GENERAL: She is alert and oriented x 3 in no acute distress. [address] [address] CONSULTATION Name: MEERA SHEPARD Room #: 422-P [facility] IN ..#: [id number] Admission: 08/27/17 Attend Phys: Jordon Crandall DO Discharge: Date of : 54 Report #: [id number] HEENT: Sclerae nonicteric. Oropharynx clear. NECK: Supple, without lymphadenopathy. CARDIOVASCULAR: Regular rate and rhythm. CHEST: Clear to auscultation bilaterally. ABDOMEN: Soft, obese. She is nondistended. She is mildly tender in her lower quadrants bilaterally. EXTREMITIES: No cyanosis, clubbing or edema. LABORATORY DATA: Sodium 144, potassium 4.3, chloride 110, bicarbonate 25, BUN 17, creatinine 1.8, AST 14, total bilirubin 0.3, alkaline phosphatase 105, ALT is 15, total protein 5.4, albumin 2.3. WBC is 15.9, this is down from 22.4, hemoglobin 10.6, platelet count is 311. C. diff is positive. This was just recorded this afternoon. Other stool studies are either pending or negative. ASSESSMENT AND PLAN: Clostridium difficile colitis. Currently, the patient is on metronidazole IV and aztreonam. We will discontinue aztreonam and start vancomycin orally for Clostridium difficile and continue to monitor the patient's white blood cell count and continue supportive care. Thank you for allowing me to participate in her care. <ELECTRONICALLY SIGNED> By: Malik Montlavo MD 09/01/17 0821 [id number] [id number] Malik Montalvo MD /nt
[~2017-08-27 14:51] MED LIST changes: -CENTRUM SILVER1 EAC4 PO; -DURAGESIC1 EACH TRANSDERM; -FIRVANQ50 MG/1 ML PO; -GLUCOSAMINE CH1 EAC2 PO; -LASIX 20 MG TAB20 MG PO; -OXYCODONE-ACET1 EACH PO; -VALACYCLOVIR500 MG PO; -VANCOCIN 250 M250 M1 PO; -VANCOMYCIN HCL125 MG PO; -VENTOLIN HFA 1818 GM INH; -VITAMIN D50000 UNIT PO
[2017-08-27 15:19] VITALS: BP 146/69
[2017-08-27] MEDS ORDERED: NEURONTIN 300300 M1 PO (15:26)
[2017-08-27 16:55] LABS: HEMATOCRIT 34.5 % (37.0-47.0); HEMOGLOBIN 11.1 gm/dL (12.0-15.0); MCH 29.9 pg (26.0-34.0); MCHC 32.2 g/dL (28.0-37.0); MCV 92.7 fL (80.0-100.0); PLATELET COUNT 293 thou/uL (150-400); RBC 3.72 mil/uL (4.20-5.00); RDW 15.9 % (10.5-14.5); WBC 22.4 thou/uL (4.0-11.0)
[2017-08-27 17:26] LABS: ABSOLUTE NEUTROPHILS 21.1 thou/uL (1.4-8.2); ANISOCYTOSIS SLIGHT
[2017-08-27 18:15] LABS: ALBUMIN 2.3 g/dL (3.4-5.0); CALCIUM 9.1 mg/dL (8.5-10.1); CREATININE 1.9 mg/dL (0.6-1.0); POTASSIUM 3.7 mmol/L (3.5-5.1); TOTAL BILIRUBIN 0.3 mg/dL (<0.1-1.0); TOTAL PROTEIN 5.4 g/dL (6.4-8.2)
[2017-08-27 20:17] VITALS: BP 156/76
[2017-08-27 20:25] VITALS: BP 101/51
[2017-08-28 03:46] VITALS: BP 116/54
[2017-08-28 08:48] VITALS: BP 152/75
[2017-08-28 12:28] LABS: HEMATOCRIT 33.2 % (37.0-47.0); HEMOGLOBIN 10.6 gm/dL (12.0-15.0); MCHC 32.1 g/dL (28.0-37.0); MCV 93.5 fL (80.0-100.0); RBC 3.55 mil/uL (4.20-5.00); RDW 15.7 % (10.5-14.5); WBC 15.9 thou/uL (4.0-11.0)
[2017-08-28 12:40] LABS: CALCIUM 9.2 mg/dL (8.5-10.1); CREATININE 1.8 mg/dL (0.6-1.0); POTASSIUM 4.3 mmol/L (3.5-5.1)
[2017-08-28 16:00] VITALS: BP 125/55
[2017-08-28 19:15] VITALS: BP 138/53
[2017-08-29 03:43] VITALS: BP 139/68
[2017-08-29 05:31] LABS: HEMATOCRIT 33.3 % (37.0-47.0); HEMOGLOBIN 10.7 gm/dL (12.0-15.0); MCHC 32.3 g/dL (28.0-37.0); MCV 92.9 fL (80.0-100.0); PLATELET COUNT 318 thou/uL (150-400); RBC 3.58 mil/uL (4.20-5.00); RDW 15.3 % (10.5-14.5); WBC 30.3 thou/uL (4.0-11.0)
[2017-08-29 05:38] LABS: CALCIUM 8.9 mg/dL (8.5-10.1); CREATININE 1.7 mg/dL (0.6-1.0); POTASSIUM 3.5 mmol/L (3.5-5.1)
[2017-08-29 07:15] VITALS: BP 131/57
[2017-08-29 09:33] LABS: ABSOLUTE NEUTROPHILS 28.8 thou/uL (1.4-8.2)
[2017-08-29 09:34] LABS: ANISOCYTOSIS 1+; OVALOCYTES FEW
[2017-08-29 15:34] VITALS: BP 113/50
[2017-08-29 19:30] VITALS: BP 96/40
[2017-08-30 03:41] VITALS: BP 144/65
[2017-08-30 06:03] LABS: HEMATOCRIT 31.2 % (37.0-47.0); HEMOGLOBIN 10.1 gm/dL (12.0-15.0); MCH 30.1 pg (26.0-34.0); MCHC 32.5 g/dL (28.0-37.0); MCV 92.7 fL (80.0-100.0); PLATELET COUNT 288 thou/uL (150-400); RBC 3.37 mil/uL (4.20-5.00); RDW 15.4 % (10.5-14.5); WBC 28.4 thou/uL (4.0-11.0)
[2017-08-30 06:25] LABS: CREATININE 1.8 mg/dL (0.6-1.0); POTASSIUM 3.2 mmol/L (3.5-5.1)
[2017-08-30 07:51] VITALS: BP 111/38
[2017-08-30 08:41] LABS: ABSOLUTE NEUTROPHILS 26.4 thou/uL (1.4-8.2); PLATELET ESTIMATE NORMAL
[2017-08-30 14:05] VITALS: BP 132/69
[2017-08-30 20:00] VITALS: BP 110/63
[2017-08-31 03:40] VITALS: BP 123/68
[2017-08-31 04:46] LABS: HEMATOCRIT 28.8 % (37.0-47.0); HEMOGLOBIN 9.2 gm/dL (12.0-15.0); MCH 29.7 pg (26.0-34.0); MCV 92.8 fL (80.0-100.0); PLATELET COUNT 283 thou/uL (150-400); RBC 3.11 mil/uL (4.20-5.00); RDW 15.2 % (10.5-14.5); WBC 21.1 thou/uL (4.0-11.0)
[2017-08-31 04:49] LABS: CALCIUM 8.7 mg/dL (8.5-10.1); CREATININE 1.9 mg/dL (0.6-1.0); POTASSIUM 3.3 mmol/L (3.5-5.1)
[2017-08-31 06:26] LABS: ABSOLUTE NEUTROPHILS 19.6 thou/uL (1.4-8.2); PLATELET ESTIMATE NORMAL
[2017-08-31 08:09] VITALS: BP 90/46
[2017-08-31 16:30] VITALS: BP 96/42
[2017-08-31 20:08] VITALS: BP 106/46
[2017-09-01 04:33] LABS: HEMATOCRIT 30.3 % (37.0-47.0); HEMOGLOBIN 9.8 gm/dL (12.0-15.0); MCH 29.6 pg (26.0-34.0); MCHC 32.2 g/dL (28.0-37.0); PLATELET COUNT 319 thou/uL (150-400); RBC 3.29 mil/uL (4.20-5.00); RDW 15.2 % (10.5-14.5)
[2017-09-01 04:42] LABS: CALCIUM 8.6 mg/dL (8.5-10.1); CREATININE 2.2 mg/dL (0.6-1.0); POTASSIUM 3.4 mmol/L (3.5-5.1)
[2017-09-01 04:46] VITALS: BP 116/57
[2017-09-01 04:46] LABS: % SATURATION 30 % (20-39); CHOLESTEROL 91 mg/dL (<200); HDL CHOLESTEROL 63 mg/dL (>40); IRON 27 ug/dL (50-170); LDL CHOLESTEROL 22 mg/dL (<100); MAGNESIUM 1.9 mg/dL (1.8-2.4); PHOSPHORUS 3.9 mg/dL (2.5-4.9); TC:HDL 1.4 Ratio (Not establshd); TIBC 90 ug/dL (250-450); TRIGLYCERIDE 33 mg/dL (<150); VLDL 7 mg/dL (<40)
[2017-09-01 05:20] LABS: FERRITIN 184 ng/mL (8-252)
[2017-09-01 05:24] LABS: SERUM ASSESSMENT Clear
[2017-09-01 05:45] LABS: ABSOLUTE NEUTROPHILS 11.6 thou/uL (1.4-8.2); METAMYELOCYTES 1 %
[2017-09-01 09:02] VITALS: BP 103/62
[2017-09-01] MEDS ORDERED: OXYCODONE HCL5 M1 PO (13:20)
[2017-09-01 17:20] VITALS: BP 100/48
[2017-09-01 19:40] VITALS: BP 102/44; BP 123/45
[2017-09-02 07:10] VITALS: BP 102/31
[2017-09-02] MEDS ORDERED: VANCOCIN 250 M250 M1 PO (08:36)
[2017-09-02 09:09] LABS: HEMATOCRIT 32.6 % (37.0-47.0); HEMOGLOBIN 10.6 gm/dL (12.0-15.0); MCH 30.2 pg (26.0-34.0); MCHC 32.6 g/dL (28.0-37.0); MCV 92.5 fL (80.0-100.0); PLATELET COUNT 362 thou/uL (150-400); RBC 3.52 mil/uL (4.20-5.00); WBC 11.3 thou/uL (4.0-11.0)
[2017-09-02 09:16] LABS: CALCIUM 8.9 mg/dL (8.5-10.1); CREATININE 1.8 mg/dL (0.6-1.0); POTASSIUM 3.9 mmol/L (3.5-5.1)
[2017-09-02 09:25] LABS: ABSOLUTE NEUTROPHILS 7.6 thou/uL (1.4-8.2); ANISOCYTOSIS 1+; METAMYELOCYTES 2 %
[2017-09-02 10:19] VITALS: BP 102/31
[2017-10-18] MEDS ORDERED: OXYCODONE HCL5 M1 PO (16:01)
[2017-12-16] MEDS ORDERED: OXYCODONE HCL5 M1 PO (13:42)
[2017-12-16] MEDS ORDERED: DURAGESIC1 EACH TRANSDERM (13:42)
[2017-12-16] MEDS ORDERED: ROXICODONE5 M2 PO (13:42)
[2017-12-23] MEDS ORDERED: VALACYCLOVIR500 MG PO (15:17)
[2017-12-23] MEDS ORDERED: LISINOPRIL10 MG PO (15:19)
[2017-12-23] MEDS ORDERED: LASIX 20 MG TAB20 MG PO (15:20)
[2017-12-23] MEDS ORDERED: VENTOLIN HFA 1818 GM INH (15:21)
[2017-12-23] MEDS ORDERED: CENTRUM SILVER1 EAC4 PO (15:21)
[2017-12-23] MEDS ORDERED: IRON325 PO (15:22)
[2017-12-23] MEDS ORDERED: GLUCOSAMINE CH1 EAC2 PO (15:23)
[2018-02-08] MEDS ORDERED: VITAMIN D50000 UNIT PO (19:02)
[2018-02-08] MEDS ORDERED: LINZESS72 MCG PO (19:02)
[2018-02-14] MEDS ORDERED: FIRVANQ50 MG/1 ML PO (10:55)
[2018-04-07] MEDS ORDERED: OXYCODONE-ACET1 EACH PO (10:02)
[2018-04-07] MEDS ORDERED: VANCOMYCIN HCL125 MG PO (10:11)
[2018-04-11] MEDS ORDERED: OXYCODONE-ACET1 EACH PO (17:45)
== END 2017-09-02 11:45 | disposition home or self-care (01) | DRG 871 ==
LOC: ER 14:51 → 4E 19:40 → EROBS 19:40 → 4E 20:17
PROVIDERS: Family Medicine; Nurse Practitioner; Physician Assistant; Registered Nurse
DX: A41.9 Sepsis, unspecified organism (principal); E43 Unspecified severe protein-calorie malnutrition; A04.72 Enterocolitis due to Clostridium difficile, not specified as recurrent; N17.9 Acute kidney failure, unspecified; Z68.41 Body mass index [BMI] 40.0-44.9, adult; Z96.641 Presence of right artificial hip joint; N18.3 Chronic kidney disease, stage 3 (moderate); J44.9 Chronic obstructive pulmonary disease, unspecified; G47.33 Obstructive sleep apnea (adult) (pediatric); G89.4 Chronic pain syndrome; K59.00 Constipation, unspecified; E78.00 Pure hypercholesterolemia, unspecified; M19.90 Unspecified osteoarthritis, unspecified site; D64.9 Anemia, unspecified; E87.6 Hypokalemia; E66.01 Morbid (severe) obesity due to excess calories; I12.9 Hypertensive chronic kidney disease with stage 1 through stage 4 chronic kidney disease, or unspecified chronic kidney disease; Z79.899 Other long term (current) drug therapy; Z60.2 Problems related to living alone; Z90.49 Acquired absence of other specified parts of digestive tract; Z90.710 Acquired absence of both cervix and uterus; Z88.1 Allergy status to other antibiotic agents; Z90.722 Acquired absence of ovaries, bilateral; Z88.0 Allergy status to penicillin; Z88.2 Allergy status to sulfonamides; Z88.8 Allergy status to other drugs, medicaments and biological substances; Z87.891 Personal history of nicotine dependence
CPT/HCPCS: 10084

== ENCOUNTER → 2017-09-10 | Outpatient (CLI) | payer OTHER ==
[~2017-09-10] MED LIST changes: +CENTRUM SILVER1 EAC4 PO; +DURAGESIC1 EACH TRANSDERM; +FIRVANQ50 MG/1 ML PO; +GLUCOSAMINE CH1 EAC2 PO; +LASIX 20 MG TAB20 MG PO; +OXYCODONE-ACET1 EACH PO; +VALACYCLOVIR500 MG PO; +VANCOCIN 250 M250 M1 PO; +VANCOMYCIN HCL125 MG PO; +VENTOLIN HFA 1818 GM INH; +VITAMIN D50000 UNIT PO
== END ==
LOC: RAD 15:22
DX: M17.12 Unilateral primary osteoarthritis, left knee (principal)

== ENCOUNTER → 2017-09-10 | Outpatient (CLI) | payer OTHER ==
[~2017-09-10] VITALS: Ht 157.5 cm; Wt 97.5 kg
[2017-09-10 13:39] VITALS: BP 125/62
[2017-09-10 15:12] LABS: HEMATOCRIT 35.1 % (37.0-47.0); HEMOGLOBIN 11.5 gm/dL (12.0-15.0); MCH 30.5 pg (26.0-34.0); MCHC 32.8 g/dL (28.0-37.0); RBC 3.77 mil/uL (4.20-5.00); RDW 16.6 % (10.5-14.5); WBC 8.8 thou/uL (4.0-11.0)
[2017-09-10 15:37] LABS: ALBUMIN 2.7 g/dL (3.4-5.0); ANION GAP 8 mmol/L (7-16); BUN 11 mg/dL (7-18); CALCIUM 9.4 mg/dL (8.5-10.1); CHLORIDE 109 mmol/L (98-107); CHOLESTEROL 142 mg/dL (<200); CO2 26 mmol/L (21-32); CREATININE 1.8 mg/dL (0.6-1.0); GLUCOSE 101 mg/dL (74-106); HDL CHOLESTEROL 81 mg/dL (>40); LDL CHOLESTEROL 44 mg/dL (<100); POTASSIUM 4.1 mmol/L (3.5-5.1); SGOT 18 U/L (15-37); SGPT 24 U/L (30-65); SODIUM 143 mmol/L (136-145); TC:HDL 1.8 Ratio (Not establshd); TOTAL BILIRUBIN 0.4 mg/dL (<0.1-1.0); TOTAL PROTEIN 6.2 g/dL (6.4-8.2); TRIGLYCERIDE 85 mg/dL (<150); VLDL 17 mg/dL (<40)
== END ==
LOC: SEN 08:08
PROVIDERS: Nurse Practitioner Family
DX: A04.72 Enterocolitis due to Clostridium difficile, not specified as recurrent (principal); I12.9 Hypertensive chronic kidney disease with stage 1 through stage 4 chronic kidney disease, or unspecified chronic kidney disease; N18.3 Chronic kidney disease, stage 3 (moderate); I95.9 Hypotension, unspecified; J44.9 Chronic obstructive pulmonary disease, unspecified; J45.909 Unspecified asthma, uncomplicated; G47.33 Obstructive sleep apnea (adult) (pediatric); K57.30 Diverticulosis of large intestine without perforation or abscess without bleeding; M17.12 Unilateral primary osteoarthritis, left knee; D63.8 Anemia in other chronic diseases classified elsewhere; M79.7 Fibromyalgia; G93.2 Benign intracranial hypertension; R29.6 Repeated falls; Z90.722 Acquired absence of ovaries, bilateral; Z90.49 Acquired absence of other specified parts of digestive tract; Z96.641 Presence of right artificial hip joint; Z90.710 Acquired absence of both cervix and uterus

== ENCOUNTER → 2017-09-17 | Outpatient (CLI) | payer OTHER | LOC: RAD 12:12 | DX: A04.72 Enterocolitis due to Clostridium difficile, not specified as recurrent (principal) ==

== ENCOUNTER → 2017-10-29 | Outpatient (CLI) | payer OTHER ==
[~2017-10-29] MED LIST changes: -CENTRUM SILVER1 EAC4 PO; -DURAGESIC1 EACH TRANSDERM; -FIRVANQ50 MG/1 ML PO; -GLUCOSAMINE CH1 EAC2 PO; -LASIX 20 MG TAB20 MG PO; +NEFAZODONE HCL100 MG PO; -NEFAZODONE HCL200 MG PO; -OXYCODONE-ACET1 EACH PO; -VALACYCLOVIR500 MG PO; -VANCOMYCIN HCL125 MG PO; -VENTOLIN HFA 1818 GM INH; -VITAMIN D50000 UNIT PO
[2017-10-29 09:43] VITALS: BP 114/68
[2017-10-29 09:44] LABS: HEMATOCRIT 32.6 % (37.0-47.0); HEMOGLOBIN 10.6 gm/dL (12.0-15.0); MCH 30.3 pg (26.0-34.0); MCHC 32.5 g/dL (28.0-37.0); MCV 93.3 fL (80.0-100.0); RBC 3.49 mil/uL (4.20-5.00); RDW 18.1 % (10.5-14.5)
[2017-10-29 09:58] LABS: ALBUMIN 2.8 g/dL (3.4-5.0); CALCIUM 9.7 mg/dL (8.5-10.1); PHOSPHORUS 3.5 mg/dL (2.5-4.9); POTASSIUM 3.5 mmol/L (3.5-5.1)
[2017-10-29 09:59] LABS: % SATURATION 14 % (20-39); IRON 23 ug/dL (50-170); TIBC 169 ug/dL (250-450)
[2017-10-29 12:18] LABS: URINE BILIRUBIN NEGATIVE (Negative); URINE BLOOD NEGATIVE (Negative); URINE CLARITY CLEAR; URINE COLOR YELLOW; URINE GLUCOSE-RANDOM* NEGATIVE (Negative); URINE KETONES NEGATIVE (Negative); URINE LEUKOCYTES TRACE (Negative); URINE NITRITE NEGATIVE (Negative); URINE PROTEIN (DIPSTICK) NEGATIVE (Negative); URINE SPECIFIC GRAVITY 1.015 (1.005-1.035); URINE UROBILINOGEN 0.2 E.U./dl (0.2-1.0)
[2017-10-29 12:23] LABS: PROT/CREAT RATIO 0.1; URINE CREATININE-RANDOM* 139.7 mg/dL; URINE PROTEIN-RANDOM* 15.9 mg/dL (<11.9)
== END ==
LOC: OPONC 02:27
PROVIDERS: Hospitalist
DX: N18.4 Chronic kidney disease, stage 4 (severe) (principal); A04.72 Enterocolitis due to Clostridium difficile, not specified as recurrent; D63.1 Anemia in chronic kidney disease; M25.562 Pain in left knee
CPT/HCPCS: 95112

== ENCOUNTER → 2017-12-09 | Outpatient (CLI) | payer OTHER ==
[2017-12-09 12:15] LABS: CREATININE 1.6 mg/dL (0.6-1.0)
== END ==
LOC: CAT 06:13
PROVIDERS: Colon & Rectal Surgery
DX: K57.30 Diverticulosis of large intestine without perforation or abscess without bleeding (principal); N28.1 Cyst of kidney, acquired; Z90.49 Acquired absence of other specified parts of digestive tract

== ENCOUNTER → 2017-12-16 | Outpatient (CLI) | payer OTHER ==
[~2017-12-16] VITALS: Ht 162.6 cm; Wt 97.1 kg
[~2017-12-16] MED LIST changes: +DURAGESIC1 EACH TRANSDERM
--- NOTE | ~2017-12-16 | HPC ---
[facility] [place] [address] PAIN MANAGEMENT CONSULTATION Name: MEERA SHEPARD Room #: REG BRITTNEY DurandAston#: [id number] Admission: 12/16/17 Attend Phys: Nile Leyva MD Discharge: Date of : 54 Report #: [id number] THIS REPORT FOR: //name// CC: Nile Dean DATE OF SERVICE: 12/16/2017 Followup visit for management of medication for chronic intractable pain. The patient returns to the pain clinic for a 15-minute followup visit. She has C. difficile and is on vancomycin. Since developing C. difficile, her chronic pain has increased, particularly fibromyalgia-like pain with diffuse tenderness and discomfort in multiple muscle groups. She also complains of osteoarthritis of her bilateral shoulders. She has difficulty with abduction and external and internal rotation. She is on an opioid agreement, receives a certain amount of medication from us under terms of an agreement. We talked about other medications we might add to her regimen. I have suggested for osteoarthritis nonsteroidal anti-inflammatory drugs and gabapentin, but due to acute renal function restrictions, she cannot be on either of these medications. I have elected to add fentanyl 12 mcg patch as a baseline to her regimen. She tolerated this well. The patient has a significant fall risk. She is off oxygen, but she is obese and weak due to her chronic condition. She has hypertension, which is under treatment. She is morbidly obese. She denies use of tobacco. She is on an opioid agreement established in our clinic, which we reviewed along with the CDC guidelines. IMPRESSION: 1. Osteoarthritis of the shoulders bilaterally. 2. Fibromyalgia. 3. Chronic obstructive pulmonary disease. 4. Pseudotumor cerebri. 5. Chronic kidney disease. 6. Arthritis of the hips and knees, status post hip replacement. 7. Chronic low back pain with radiculopathy. PLAN: As noted above, we will add fentanyl 12 mcg patch to her regimen. She was given instructions about use of the patches, monitoring and disposal. She will safeguard all medications. By: [id number] Nile Leyva MD /nt
[2017-12-16 13:03] VITALS: BP 134/80
== END ==
LOC: PAIN
DX: M19.012 Primary osteoarthritis, left shoulder (principal); M19.011 Primary osteoarthritis, right shoulder; M79.7 Fibromyalgia; J44.9 Chronic obstructive pulmonary disease, unspecified; N18.9 Chronic kidney disease, unspecified; M54.16 Radiculopathy, lumbar region; M16.0 Bilateral primary osteoarthritis of hip; M17.0 Bilateral primary osteoarthritis of knee; G93.2 Benign intracranial hypertension

== ENCOUNTER → 2017-12-29 | Outpatient (CLI) | payer OTHER ==
[~2017-12-29] VITALS: Ht 157.5 cm; Wt 95.3 kg
[~2017-12-29] MED LIST changes: +CENTRUM SILVER1 EAC4 PO; +GLUCOSAMINE CH1 EAC2 PO; +LASIX 20 MG TAB20 MG PO; +VALACYCLOVIR500 MG PO; +VENTOLIN HFA 1818 GM INH
--- NOTE | ~2017-12-29 | P ---
[facility] [place] [place] [address] PROCEDURE REPORT Name: MEERA SHEPARD Room #: REG [facility].#: [id number] Admission: 12/29/17 Attend Phys: Malik Pearson Discharge: Date of : 54 Report #: [id number] THIS REPORT FOR: //name// CC: Valentín Dean DATE OF SERVICE: 12/29/2017 PROCEDURE PERFORMED: Colonoscopy with polypectomies and biopsies. HISTORY OF PRESENT ILLNESS: The patient is a 67-year-old female with a history of C. diff that has apparently been persistent since August of this year. She has been treated by Dr. Cliff Mcclain. She has been on vancomycin, has continued diarrhea and apparently has been tested positive again for C. diff just last month. Plan is for colonoscopy. She does have a family history of colon cancer. DESCRIPTION OF PROCEDURE: The risks and benefits of the procedure were explained to the patient, those risks including but not limited to bleeding, perforation, the risk of sedation. She understood these risks and gave informed consent. Sedation was given using propofol per Anesthesia. Next, a digital rectal exam was initially performed, which was normal. Next, using a standard Olympus colonoscope, the scope was placed in the patient's anus and advanced under direct vision to the cecum. The overall prep was excellent. Possible cecal AVM was noted. No evidence of bleeding, otherwise normal. Ileocecal valve was normal. In the ascending colon, there were 2 polyps, one was by snare cautery. A 3 mm polyp was also noted and removed by cold forceps. Random diverticula were noted in the ascending and transverse colon. Multiple random biopsies were obtained to rule out the possibility of microscopic colitis. The descending colon was normal. Multiple diverticula were noted throughout the sigmoid colon, otherwise normal. The rectal mucosa was normal. On retroflexion, small nonbleeding internal hemorrhoids were noted. The scope was then withdrawn and the procedure terminated. The patient tolerated the procedure well. IMPRESSION: 1. Two small colonic polyps. 2. Diverticulosis. 3. Possible small arteriovenous malformation in the cecum, nonbleeding. 4. Internal hemorrhoids. 5. Otherwise, normal colonoscopy. RECOMMENDATIONS: 1. Await biopsy results. 2. There was no evidence of pseudomembranes or active colitis on exam today. [address] [address] PROCEDURE REPORT Name: MEERA SHEPARD Room #: REG BRITTNEY Bender#: [id number] Admission: 12/29/17 Attend Phys: Malik Pearson Discharge: Date of : 54 Report #: [id number] We will await biopsy results. Thank you for allowing me to participate in her care. <ELECTRONICALLY SIGNED> By: Malik Montalvo MD 12/31/17 1538 [id number] Malik Montalvo MD /nt
== END | disposition home or self-care (01) ==
LOC: GI 09:09
DX: D12.2 Benign neoplasm of ascending colon (principal); K62.89 Other specified diseases of anus and rectum; K57.30 Diverticulosis of large intestine without perforation or abscess without bleeding; K64.8 Other hemorrhoids; K21.9 Gastro-esophageal reflux disease without esophagitis; I12.9 Hypertensive chronic kidney disease with stage 1 through stage 4 chronic kidney disease, or unspecified chronic kidney disease; N18.3 Chronic kidney disease, stage 3 (moderate); E78.5 Hyperlipidemia, unspecified; J43.9 Emphysema, unspecified; D64.9 Anemia, unspecified; M79.7 Fibromyalgia; M19.90 Unspecified osteoarthritis, unspecified site; F31.9 Bipolar disorder, unspecified; Z85.41 Personal history of malignant neoplasm of cervix uteri; Z85.828 Personal history of other malignant neoplasm of skin; Z90.49 Acquired absence of other specified parts of digestive tract; Z98.890 Other specified postprocedural states; Z90.710 Acquired absence of both cervix and uterus; Z87.891 Personal history of nicotine dependence; Z96.641 Presence of right artificial hip joint; Z87.19 Personal history of other diseases of the digestive system; Z88.0 Allergy status to penicillin; Z88.2 Allergy status to sulfonamides; Z88.8 Allergy status to other drugs, medicaments and biological substances; Z79.899 Other long term (current) drug therapy
CPT/HCPCS: 62110; 62900

== ENCOUNTER → 2017-12-30 | Outpatient (CLI) | payer OTHER ==
[2017-12-30 09:03] LABS: HEMATOCRIT 32.4 % (37.0-47.0); HEMOGLOBIN 10.7 gm/dL (12.0-15.0); MCH 31.8 pg (26.0-34.0); MCHC 33.1 g/dL (28.0-37.0); MCV 96.2 fL (80.0-100.0); RBC 3.37 mil/uL (4.20-5.00); RDW 16.3 % (10.5-14.5); WBC 7.2 thou/uL (4.0-11.0)
[2017-12-30 11:33] VITALS: BP 112/42
== END ==
LOC: OPONC 06:59
PROVIDERS: Hospitalist
DX: N18.4 Chronic kidney disease, stage 4 (severe) (principal); D63.1 Anemia in chronic kidney disease
CPT/HCPCS: 95112

== ENCOUNTER → 2018-01-27 | Outpatient (CLI) | payer OTHER ==
[2018-01-27 10:06] LABS: HEMATOCRIT 33.1 % (37.0-47.0); HEMOGLOBIN 11.2 gm/dL (12.0-15.0); MCH 31.7 pg (26.0-34.0); MCHC 33.8 g/dL (28.0-37.0); MCV 93.8 fL (80.0-100.0); RBC 3.53 mil/uL (4.20-5.00); RDW 14.8 % (10.5-14.5); WBC 7.6 thou/uL (4.0-11.0)
[2018-01-27 10:20] LABS: % SATURATION 25 % (20-39); IRON 43 ug/dL (50-170); TIBC 173 ug/dL (250-450)
[2018-01-27 10:22] LABS: PROT/CREAT RATIO 0.2; URINE CREATININE-RANDOM* 167.1 mg/dL; URINE PROTEIN-RANDOM* 34.6 mg/dL (<11.9)
[2018-01-27 10:22] LABS: ALBUMIN 3.1 g/dL (3.4-5.0); CALCIUM 9.5 mg/dL (8.5-10.1); CREATININE 1.6 mg/dL (0.6-1.0); PHOSPHORUS 3.2 mg/dL (2.5-4.9); POTASSIUM 3.8 mmol/L (3.5-5.1)
[2018-01-27 12:16] VITALS: BP 138/78
== END ==
LOC: OPONC 00:52
PROVIDERS: Hospitalist
DX: N18.4 Chronic kidney disease, stage 4 (severe) (principal); D63.1 Anemia in chronic kidney disease
CPT/HCPCS: 91016

== ENCOUNTER 2018-02-15 13:45 | Inpatient (IN) | payer OTHER ==
[~2018-02-15] VITALS: Ht 157.5 cm; Wt 95.3 kg
[~2018-02-15 13:45] MED LIST changes: +FIRVANQ50 MG/1 ML PO; -NEFAZODONE HCL100 MG PO; +NEFAZODONE HCL200 MG PO; +VITAMIN D50000 UNIT PO
[2018-02-15 13:46] VITALS: BP 131/49
[2018-02-15 15:53] LABS: HEMATOCRIT 32.5 % (37.0-47.0); HEMOGLOBIN 10.6 gm/dL (12.0-15.0); MCHC 32.7 g/dL (28.0-37.0); MCV 94.6 fL (80.0-100.0); PLATELET COUNT 269 thou/uL (150-400); RBC 3.43 mil/uL (4.20-5.00); RDW 15.6 % (10.5-14.5); WBC 12.6 thou/uL (4.0-11.0)
[2018-02-15 16:01] LABS: CREATININE 1.9 mg/dL (0.6-1.0); POTASSIUM 3.4 mmol/L (3.5-5.1)
[2018-02-15 16:08] LABS: ALBUMIN 2.6 g/dL (3.4-5.0); DIRECT BILIRUBIN 0.1 mg/dL (<0.1-0.3); TOTAL BILIRUBIN 0.3 mg/dL (<0.1-1.0); TOTAL PROTEIN 5.2 g/dL (6.4-8.2)
[2018-02-15 16:28] LABS: ABSOLUTE NEUTROPHILS 10.7 thou/uL (1.4-8.2); ANISOCYTOSIS 1+; METAMYELOCYTES 2 %; POLYCHROMASIA OCCASIONAL
[2018-02-15 18:04] VITALS: BP 102/73
[2018-02-15 18:27] VITALS: BP 102/73
[2018-02-15 19:00] VITALS: BP 138/64
[2018-02-16 03:47] VITALS: BP 158/79
[2018-02-16 04:30] LABS: HEMATOCRIT 32.5 % (37.0-47.0); HEMOGLOBIN 10.7 gm/dL (12.0-15.0); MCH 30.7 pg (26.0-34.0); MCHC 32.8 g/dL (28.0-37.0); MCV 93.6 fL (80.0-100.0); RBC 3.47 mil/uL (4.20-5.00); RDW 15.6 % (10.5-14.5); WBC 13.6 thou/uL (4.0-11.0)
[2018-02-16 04:39] LABS: CALCIUM 9.3 mg/dL (8.5-10.1); CREATININE 1.9 mg/dL (0.6-1.0); POTASSIUM 3.2 mmol/L (3.5-5.1)
[2018-02-16 08:30] VITALS: BP 130/59
[2018-02-16] MEDS ORDERED: NEFAZODONE HCL200 MG PO (14:17)
[2018-02-16 16:50] VITALS: BP 151/62
[2018-02-16 19:54] VITALS: BP 150/64
[2018-02-17 03:35] VITALS: BP 152/61
[2018-02-17 07:55] LABS: CALCIUM 9.1 mg/dL (8.5-10.1); CREATININE 1.6 mg/dL (0.6-1.0); POTASSIUM 3.6 mmol/L (3.5-5.1)
[2018-02-17 08:11] VITALS: BP 140/65
== END 2018-02-17 14:50 | DRG 871 ==
LOC: ER 13:45 → 4E 17:45 → EROBS 17:45 → 4E 18:54
PROVIDERS: Emergency Medicine; Hospitalist
PROC: 5A09357 Assistance with Respiratory Ventilation, Less than 24 Consecutive Hours, Continuous Positive Airway Pressure (ICD-10-PCS; principal; 2018-02-13)
PROC: 05HY33Z Insertion of Infusion Device into Upper Vein, Percutaneous Approach (ICD-10-PCS; 2018-02-15)
PROC: B54MZZA Ultrasonography of Right Upper Extremity Veins, Guidance (ICD-10-PCS; 2018-02-15)
DX: A41.9 Sepsis, unspecified organism (principal); E43 Unspecified severe protein-calorie malnutrition; F11.20 Opioid dependence, uncomplicated; A04.72 Enterocolitis due to Clostridium difficile, not specified as recurrent; M19.90 Unspecified osteoarthritis, unspecified site; E86.0 Dehydration; E87.6 Hypokalemia; Z96.641 Presence of right artificial hip joint; N18.3 Chronic kidney disease, stage 3 (moderate); J44.9 Chronic obstructive pulmonary disease, unspecified; K59.00 Constipation, unspecified; J45.909 Unspecified asthma, uncomplicated; G89.4 Chronic pain syndrome; K21.9 Gastro-esophageal reflux disease without esophagitis; I12.9 Hypertensive chronic kidney disease with stage 1 through stage 4 chronic kidney disease, or unspecified chronic kidney disease; F31.9 Bipolar disorder, unspecified; G43.909 Migraine, unspecified, not intractable, without status migrainosus; M10.9 Gout, unspecified; Z87.81 Personal history of (healed) traumatic fracture; Z88.6 Allergy status to analgesic agent; Z90.49 Acquired absence of other specified parts of digestive tract; Z90.722 Acquired absence of ovaries, bilateral; Z90.710 Acquired absence of both cervix and uterus; Z88.1 Allergy status to other antibiotic agents; Z88.0 Allergy status to penicillin; Z88.2 Allergy status to sulfonamides; Z88.7 Allergy status to serum and vaccine; Z88.8 Allergy status to other drugs, medicaments and biological substances; Z87.891 Personal history of nicotine dependence; Z79.899 Other long term (current) drug therapy

== ENCOUNTER → 2018-05-05 | Outpatient (CLI) | payer OTHER ==
[~2018-05-05] MED LIST changes: +OXYCODONE-ACET1 EACH PO; +VANCOMYCIN HCL125 MG PO
[2018-05-05 09:25] VITALS: BP 140/81
[2018-05-05 09:45] LABS: HEMATOCRIT 38.2 % (37.0-47.0); HEMOGLOBIN 12.8 gm/dL (12.0-15.0); MCH 32.1 pg (26.0-34.0); MCHC 33.6 g/dL (28.0-37.0); MCV 95.3 fL (80.0-100.0); RBC 4.01 mil/uL (4.20-5.00); RDW 16.3 % (10.5-14.5); WBC 8.4 thou/uL (4.0-11.0)
[2018-05-05 09:55] LABS: CALCIUM 9.4 mg/dL (8.5-10.1); CREATININE 1.5 mg/dL (0.6-1.0); POTASSIUM 4.1 mmol/L (3.5-5.1)
[2018-05-05 09:58] LABS: % SATURATION 37 % (20-39); IRON 68 ug/dL (50-170); TIBC 183 ug/dL (250-450)
[2018-05-05 09:59] LABS: ALBUMIN 3.1 g/dL (3.4-5.0); PHOSPHORUS 3.3 mg/dL (2.5-4.9)
[2018-05-05 10:17] LABS: PROT/CREAT RATIO 0.2; URINE CREATININE-RANDOM* 167.4 mg/dL; URINE PROTEIN-RANDOM* 33.5 mg/dL (<11.9)
== END ==
LOC: OPONC 00:37
PROVIDERS: Internal Medicine Nephrology
DX: N18.4 Chronic kidney disease, stage 4 (severe) (principal); D63.1 Anemia in chronic kidney disease
CPT/HCPCS: 91016

== ENCOUNTER → 2018-06-30 | Outpatient (CLI) | payer OTHER ==
[2018-06-30 09:49] LABS: HEMATOCRIT 32.5 % (37.0-47.0); MCH 32.9 pg (26.0-34.0); MCV 96.6 fL (80.0-100.0); RBC 3.36 mil/uL (4.20-5.00); RDW 14.9 % (10.5-14.5); WBC 8.7 thou/uL (4.0-11.0)
[2018-06-30 14:22] VITALS: BP 106/64
== END ==
LOC: OPONC 00:29
PROVIDERS: Hospitalist
DX: N18.4 Chronic kidney disease, stage 4 (severe) (principal); D63.1 Anemia in chronic kidney disease
CPT/HCPCS: 91016

== ENCOUNTER → 2018-07-08 | Outpatient (CLI) | payer OTHER ==
[~2018-07-08] VITALS: Ht 157.5 cm; Wt 92.5 kg
--- NOTE | ~2018-07-08 | HPC ---
[facility] [place] [place] [place] [address] PAIN MANAGEMENT CONSULTATION Name: MEERA SHEPARD Room #: REG BRITTNEY DurandAston#: [id number] Admission: 07/08/18 Attend Phys: Nile Leyva MD Discharge: Date of : 54 Report #: [id number] THIS REPORT FOR: //name// CC: Nile Dean DATE OF SERVICE: 07/08/2018 CHIEF COMPLAINT: Bilateral shoulder pain with osteoarthritis. HISTORY OF PRESENT ILLNESS: The patient is here today requesting shoulder injections. The pain is severe. She has pain with all movements of her shoulder and crepitus. Medications were reviewed once again at the last visit. She reported that medication had been taken from her home. She was given a drug test, which was reviewed today and we have reviewed the PDMP. Drug testing showed oxycodone and gabapentin as anticipated. No other illicit substances. PDMP shows that there have been no unusual activities. I have agreed to provide her with bilateral shoulder injections. She does have a history of multi-joint arthritis including shoulders, hips and knees. She is morbidly obese with a BMI of 37. She needs help with standing and walking but has not fallen in 3 months. She is a fall risk, using a cane. She was cautioned. She is on no blood thinners. She sees Dr. Gerson Dean who provides her with medication including her antihypertensive medications. Please review the electronic medical record. All medications were reviewed and reconciled. She does not use tobacco or alcohol. She is receiving opioid medications under our terms of an opioid agreement. She has had [id number] risk, but the biggest concern I have is that she monitors her medication carefully. After her most recent event, she will carefully keep her medication locked up in a place where no one else can find it. PHYSICAL EXAMINATION: VITAL SIGNS: Her BMI is 37, blood pressure 164/71, heart rate 83 and respirations 16. MUSCULOSKELETAL: She has arms of the chair to get up and down. She walks carefully with a cane. She has tenderness across her low back. She has tenderness in her hips and shoulders. She has pain with abduction, internal and external rotation. She is morbidly obese. IMPRESSION: 1. Osteoarthritis, diffuse. Today, chief complaint is bilateral shoulders. She would like injection. 2. Fibromyalgia. [address] [address] PAIN MANAGEMENT CONSULTATION Name: MEERA SHEPARD Room #: REG BRITTNEY Yulia#: [id number] Admission: 07/08/18 Attend Phys: Nile Leyva MD Discharge: Date of : 54 Report #: [id number] 3. Chronic low back pain, post-laminectomy syndrome. 4. Pseudotumor cerebri. 5. Chronic obstructive pulmonary disease. 6. Chronic kidney disease. 7. Management of high risk medications under terms of an opioid agreement and by CDC guidelines. Her daily MME is only 13.5. She is allowed hydrocodone 5/325. PROCEDURE: Bilateral shoulder injection under fluoroscopic guidance. DESCRIPTION OF PROCEDURE: She was taken to fluoroscopic suite where she was placed supine. Skin was prepped first on the right. A 25-gauge needle was gently advanced into the shoulder joint. There was no joint fluid aspirated. I then injected a total of 3 mL of 0.5% bupivacaine mixed with 40 mg of triamcinolone. C-arm was moved to the left and repeat injection was performed on that side. She tolerated the bilateral shoulder injections well. Pain was reduced by well over 75% in recovery room before discharge. Follow up as needed. By: [id number] Nile Leyva MD /nt
[2018-07-08 11:23] VITALS: BP 164/71
== END | disposition home or self-care (01) ==
LOC: PAIN 10:04
DX: M19.011 Primary osteoarthritis, right shoulder (principal); M19.012 Primary osteoarthritis, left shoulder; M79.7 Fibromyalgia; J44.9 Chronic obstructive pulmonary disease, unspecified; N18.9 Chronic kidney disease, unspecified; G93.2 Benign intracranial hypertension; Z79.891 Long term (current) use of opiate analgesic; Z98.890 Other specified postprocedural states; Z87.440 Personal history of urinary (tract) infections; Z87.19 Personal history of other diseases of the digestive system; Z88.0 Allergy status to penicillin; Z88.2 Allergy status to sulfonamides; Z79.899 Other long term (current) drug therapy

== ENCOUNTER → 2018-11-07 | Outpatient (CLI) | payer OTHER ==
[~2018-11-07] VITALS: Ht 157.5 cm; Wt 98.9 kg
[~2018-11-07] MED LIST changes: +BETAMETHASONE D30 ML TOP; +CHOLESTYRAMINE378 GM PO
[2018-11-07 08:57] VITALS: BP 155/75
--- NOTE | 2018-11-07 09:09 | NUR ---
Pain Clinic Assessment: 1. History of Osteoarthritis: Not Applicable History of Rheumatoid Arthritis: Not Applicable 2. Height: 5 ft. 2 in. 157.5 cm. Weight: 218.0 lb. oz. 98.884 kg. Patient's BMI: 39.9 3. Vital Signs: BP: 155/75 Pulse: 84 Resp: 14 Temp: 02 Sat: 94 ECG Mon: 4. Pain Intensity: 8 5. Fall Risk: Dizziness: N Needs help standing or walking: N Fallen in the last 3 months: N Fall risk comments: CANE 6. Patient on Blood Thinner: None 7. History of Hypertension: Y 8. Opioid Therapy greater than 6 weeks: Y Opiate Contract Signed: 04/13/16 9. Risk Assessment Tool Provided: low risk 10. Functional Assessment Tool: 49/70 11. Recreational Drug Use: Never Drug Type: Tobacco Use: Former Smoker Tobacco Type: Amount or Packs/day: How Many Years: Alcohol Use: No Frequency: Quant:
--- NOTE | 2018-11-08 08:40 | HPC ---
[facility] [address] [place] [address] PAIN MANAGEMENT CONSULTATION Name: MEERA SHEPARD Room #: REG Chastity Bender#: [id number] Admission: 11/07/18 ������������������ Attend Phys: Hillary Dawkins Discharge: ������������������ Date of : 54 Report #: [id number] THIS REPORT FOR: //name// CC: Hillary Dawkins Gerson Dean DATE OF SERVICE: 11/07/2018 CHIEF COMPLAINT: Bilateral shoulder pain with osteoarthritis and thoracic back pain. HISTORY OF PRESENT ILLNESS: The patient returns today complaining of bilateral shoulder pain as well as mid thoracic back area that is radiating around her ribs into the front. She tells me that this pain has been going on for at least a month. She is coughing quite a bit today. She tells me it is asthma related and that is exacerbating her pain. She is wondering about an injection today. The patient also tells me that she had been hospitalized at [facility] about 3 weeks ago for another bout of C. diff. She is currently on vancomycin. She said her pain has been worse lately related to this coughing and this mid back area, wondering about an injection and wondering if she can increase her pain medicines, someday she is needing to take 3 pills lately. She tells me that her pain is an 8/10 today. It is a constant, aching. It hurts when she takes a deep breath. She denies any problems with constipation because of her C. diff and her antibiotics and does not have any daytime sleepiness or does not feel overmedicated. She tells me that the injections at her shoulders from last visit in June were helpful in relieving some of that discomfort. ALLERGIES: PENICILLIN, TETRACYCLINE, SULFA, INDOMETHACIN, IBUPROFEN, ____, CIPRO, TETANUS, OXCARBAZEPINE, LEVOFLOXACIN. CURRENT MEDICATIONS: Trazodone 100 mg at bedtime, colostrum powder, oxycodone 5/325 b.i.d. p.r.n., vancomycin 125 mg q.i.d., nefazodone 400 mg at bedtime and 200 in the morning, vitamin D3, gabapentin 300 mg at bedtime, Nexium 400 mg at bedtime, allopurinol 1 daily, Singulair, Topamax 100 mg daily, tizanidine 4 mg at bedtime, Lipitor 20 mg at bedtime, duloxetine 60 mg b.i.d. PQRS: 1. She does have osteoarthritis in her bilateral shoulders and in other joints, hips and knees. Denies any rheumatoid arthritis. 2. Height is 5 feet 2 inches, weight is 218, BMI is 39. 3. Vital signs, blood pressure 155/75, pulse is 84, respirations 14, oxygen sat is 94%. 4. Pain score is 8/10. 5. Fall risk. Denies dizziness. Does not need help walking, standing, has not fallen in the last 3 months. 6. The patient is not on any blood thinners, does take medicine for [address] [address] PAIN MANAGEMENT CONSULTATION Name: DEVYNMEERA ROY Room #: REG BRITTNEY Bender#: [id number] Admission: 11/07/18 ������������������ Attend Phys: Hillary Dawkins Discharge: ������������������ Date of : 54 Report #: [id number] hypertension. 7. Opioid therapy is greater than 6 weeks; therefore, an opiate signed contract is on the chart. 8. Risk assessment tool is low. Functional assessment is 49/70. 9. Recreational drug use, she denies. She is a former smoker and does not drink alcohol. We did check the prescription monitoring system. The patient is filling appropriately, tells me she does safeguard her medications at all times. PHYSICAL EXAMINATION: GENERAL: This is a well-developed, well-nourished, morbidly obese female who appears her stated age. Her affect is appropriate. Placing her pain score today at 8/10. HEENT: Normocephalic, atraumatic. Extraocular eye muscles are intact. Mucous membranes are moist. MUSCULOSKELETAL: She uses her arms to go from sitting to standing. She walks with an antalgic gait. She is not using any assistive devices today. The patient does complain of mid thoracic pain that radiates around into her rib cage area to the anterior portion of her chest, inhalation increases this pain. The patient does walk with an antalgic gait. ASSESSMENT: 1. Osteoarthritis, diffuse. 2. Fibromyalgia. 3. Chronic low back pain, post-laminectomy syndrome. 4. Pseudotumor cerebri. 5. Chronic obstructive pulmonary disease. 6. Chronic kidney disease. 7. Management of high risk medication under terms of written opioid agreement. 8. Mid thoracic pain. We reviewed the fact that opiate medications are being used to provide analgesia adequate to support activities of daily living, not attempting to achieve a specific pain score on the 0-10 Visual Analog Scale. The current opiate medications are providing sufficient analgesia to allow the patient to participate in activities of daily living. The patient is not exhibiting any aberrant behavior suggestive of drug diversion. The patient is not having any adverse reactions to medications. The patient is not suffering from daytime somnolence or mental acuity changes. The patient is managing opiate-induced constipation with appropriate rbdo-dyd-izinxei agents and dietary considerations. The patient was counseled on concern for caution with operating a motor vehicle while using opiate medications. A physical exam was performed and the patient's functional status was evaluated. All patients with back pain were advised against the bed rest greater than 4 [facility] [address] [place] [address] PAIN MANAGEMENT CONSULTATION Name: MEERA SHEPARD Room #: REG [facility] M..#: [id number] Admission: 11/07/18 ������������������ Attend Phys: Hillary Dawkins Discharge: ������������������ Date of : 54 Report #: [id number] days and were advised to return to normal activities. Pain score assessment was noted and the treatment plan was reviewed with the patient. All current medications, both prescribed and OTC were reviewed and reconciled on the electronic medical record. Tobacco screening was accomplished and smoking cessation was advised when indicated. BMI was noted and diet/exercise modification was recommended for all patients following outside normal parameters. I reviewed with the patient today their responsibilities to safeguard prescription medications, reviewed their responsibility to utilize medications only as prescribed by the physician. They are to seek and receive pain medications only from 1 physician group ([facility]). They are to use 1 pharmacy and keep the clinic informed if they change pharmacies. Their responsibilities include making followup visits in a timely fashion and to avoid abrupt discontinuation of medication usage. Their responsibilities further include bringing their medications (bottles from the pharmacy with residual pills) to the visit for possible confirmation of pill counts and the patient understands it is their responsibility to submit to random drug screens to ensure both that the medications prescribed are present, and that no other controlled substances are present. All prescriptions provided today were generated electronically. PLAN: 1. We discussed treatment options with the patient today. I informed the patient that we would not be able to do an injection today based on her current antibiotics. The patient is complaining of this mid thoracic pain. She has not had any x-rays at [facility] recently. The patient tells me she has not had any compression fractures in the past. I think this pain has been ongoing for over a month. If it continues, she needs to ask her primary care doctor to have a chest x-ray and thoracic spine x-ray done at [facility] where they can compare her x-rays to previous pictures. The patient is agreeable with this plan of care. She had this recent bout of her Clostridium difficile in less than 3 weeks ago, so she will continue on her antibiotics and let us know if the pain continues. 2. Dr. Nile Leyva did see the patient briefly today and told her that if in 1 month when she was stable with her Clostridium difficile, he would consider an injection at that time if the pain continues and if she has had an x-ray to rule out compression fractures. 3. Prescriptions given today for Percocet 5/325 #75 for the first month. The patient may take 1 tablet 2-3 times a day and then for the second and third months, decrease back to her #60 tablets, to take 2 tablets a day. The patient is agreeable with this plan of care. 4. The patient is seen with Dr. Leyva who also collaborated care. The patient [address] [address] PAIN MANAGEMENT CONSULTATION Name: DEVYNMEERA ROY Room #: REG BRITTNEY Bender#: [id number] Admission: 11/07/18 ������������������ Attend Phys: Hillary Dawkins Discharge: ������������������ Date of : 54 Report #: [id number] will call for an appointment in 3 months for medications or 1 month for an injection if needed. ��������������������������������������������� <ELECTRONICALLY SIGNED> ���������������������������������������� By: Hillary Dawkins ��������������������������������������������� 11/08/18 0840 [id number] 0001 Hillary Dawkins /cindy
== END ==
LOC: PAIN 10-10 06:53
DX: M19.011 Primary osteoarthritis, right shoulder (principal); M19.012 Primary osteoarthritis, left shoulder; M54.6 Pain in thoracic spine; M17.0 Bilateral primary osteoarthritis of knee; M16.0 Bilateral primary osteoarthritis of hip; G89.29 Other chronic pain; J44.9 Chronic obstructive pulmonary disease, unspecified; Z88.0 Allergy status to penicillin; Z88.1 Allergy status to other antibiotic agents; Z88.2 Allergy status to sulfonamides; Z88.8 Allergy status to other drugs, medicaments and biological substances; Z79.899 Other long term (current) drug therapy; Z79.891 Long term (current) use of opiate analgesic

== ENCOUNTER → 2019-02-02 | Outpatient (CLI) | payer OTHER ==
[~2019-02-02] VITALS: Ht 157.5 cm; Wt 90.4 kg
[~2019-02-02] MED LIST changes: +BENTYL 20 MG TA20 M1 PO; +VITAMIN D5000 UNIT PO; -VITAMIN D50000 UNIT PO
--- NOTE | ~2019-02-02 | HPC ---
[facility] [place] [address] PAIN MANAGEMENT CONSULTATION Name: MEERA SHEPARD Room #: REG BRITTNEY DurandAston#: [id number] Admission: 02/02/19 ������������������ Attend Phys: Nile Leyva MD Discharge: ������������������ Date of : 54 Report #: [id number] THIS REPORT FOR: //name// CC: Nile Dean DATE OF SERVICE: 02/02/2019 Followup visit for management of chronic intractable low back pain with medication management and opioid agreement. Secondary problem of osteoarthritis involving bilateral shoulders. Third problem is fibromyalgia. The patient returns to the pain clinic today in followup; 15 to 20-minute followup visit discussing her use of medication for chronic intractable pain. She remains on an opioid agreement and under terms of the written opioid agreement she is allowed to take oxycodone 5/325 one tablet daily. She has been on medication for over 10 years. Her MME is 15. She takes her first dose in the morning and then perhaps a second dose at noon or later in the afternoon. She denies side effects. She carefully safeguards her medication in a locked box and is grateful for the relief that it provides and the improvement in her daily ability to get around. Her second complaint today is pain in her shoulders. She has diffuse osteoarthritis. The shoulders bother her. She has difficulty with abduction, internal and external rotation, lifting and caring her particular problems. She has trouble with housework. PQRS REVIEW: 1. History of osteoarthritis. 2. BMI of 38.9. She is chronically obese and we have discussed its role in mobility and chronic pain issues. 3. Vital signs: Blood pressure 162/82, heart rate 80 and respirations 16. 4. Pain intensity is 5 in the low back with sitting and 8 with activity. Shoulder pain is generally a 6 to 8. 5. She is not a fall risk and has not fallen in the last 3 months. She does use a cane. 6. No blood thinners. 7. History of hypertension under treatment with medication from primary care physician, Dr. Lopez. All medications have been reviewed and reconciled. 8. She is on an opioid agreement signed in 2016. 9. She has completed an opioid risk tool and is considered at low risk. 10. Functional assessment tool 49/70. 11. Denies use of tobacco and alcohol. Examination of her shoulders reveals pain with tenderness mostly anterior. She has pain with abduction, internal and external rotation with some limitations. [address] [address] PAIN MANAGEMENT CONSULTATION Name: MEERA SHEPARD Room #: REG CLI Apoorva.#: [id number] Admission: 02/02/19 ������������������ Attend Phys: Nile Leyva MD Discharge: ������������������ Date of : 54 Report #: [id number] She has no radiating pain into the shoulders or arms. She has weakness in the biceps, triceps and deltoid. 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 Low back is tender throughout with decreased range of motion. Pain with forward flexion, extension and rotation. IMPRESSION: 1. Chronic intractable low back pain and issues of chronic intractable pain managed with opioid medication. 2. Bilateral osteoarthritis of shoulder requesting injection. 3. Fibromyalgia. PLAN: Bilateral shoulder injection under fluoroscopic guidance. PROCEDURE: The patient was taken to the fluoroscopic suite. She was placed supine. Skin was prepped first on the left. A 25-gauge needle was gently advanced into the shoulder joint using 1% lidocaine for local anesthesia. It was advanced into the shoulder joint. After negative aspiration, I injected 0.25 mL of Omnipaque to demonstrate an arthrogram. It was then followed by 40 mg of triamcinolone and 4 mL of 0.5% bupivacaine. Needle was removed. We repeated the same injection on the right again without complication. Significant reduction in pain was noted in recovery room. Followup visit is scheduled on an as needed basis. I did renew for her today oxycodone 5/325 under terms of our agreement with refills allowed with separate prescriptions for release at 4 and 8 weeks. She has been quite stable. We have checked her prescription drug monitoring information as well as reviewed her responsibilities in safeguarding medication. ��������������������������������������������� ���������������������������������������� By: ��������������������������������������������� 1203 1229 Nile Leyva MD /nt
[2019-02-02 09:08] VITALS: BP 162/82
--- NOTE | 2019-02-02 09:29 | NUR ---
Pain Clinic Assessment: 1. History of Osteoarthritis: Left Upper Extremity Right Upper Extremity History of Rheumatoid Arthritis: Not Applicable 2. Height: 5 ft. 2 in. 157.5 cm. Weight: 199.4 lb. oz. 90.447 kg. Patient's BMI: 38.9 3. Vital Signs: BP: 162/82 Pulse: 80 Resp: 16 Temp: 02 Sat: 95 ECG Mon: 4. Pain Intensity: 5 SITTING 8 ACTIVITY 5. Fall Risk: Dizziness: N Needs help standing or walking: Y Fallen in the last 3 months: N Fall risk comments: CANE 6. Patient on Blood Thinner: None 7. History of Hypertension: Y 8. Opioid Therapy greater than 6 weeks: Y Opiate Contract Signed: 04/13/16 9. Risk Assessment Tool Provided: low risk 10. Functional Assessment Tool: 11. Recreational Drug Use: Never Drug Type: Tobacco Use: Former Smoker Tobacco Type: Amount or Packs/day: How Many Years: Alcohol Use: No Frequency: Quant:
== END | disposition home or self-care (01) ==
LOC: PAIN 08:41
DX: M19.011 Primary osteoarthritis, right shoulder (principal); M19.012 Primary osteoarthritis, left shoulder; M54.5 Low back pain; M79.7 Fibromyalgia; I10 Essential (primary) hypertension; J44.9 Chronic obstructive pulmonary disease, unspecified; G89.29 Other chronic pain; E66.09 Other obesity due to excess calories; Z79.891 Long term (current) use of opiate analgesic; Z68.38 Body mass index [BMI] 38.0-38.9, adult; Z87.891 Personal history of nicotine dependence; Z87.19 Personal history of other diseases of the digestive system; Z79.899 Other long term (current) drug therapy; Z87.440 Personal history of urinary (tract) infections; Z88.0 Allergy status to penicillin; Z88.2 Allergy status to sulfonamides; Z88.8 Allergy status to other drugs, medicaments and biological substances

== ENCOUNTER → 2019-05-08 | Outpatient (CLI) | payer OTHER ==
[~2019-05-08] VITALS: Ht 157.5 cm; Wt 99.5 kg
--- NOTE | ~2019-05-08 | HPC ---
[facility] [address] [place] [address] PAIN MANAGEMENT CONSULTATION Name: MEERA SHEPARD Room #: REG BRITTNEY DurandAston#: [id number] Admission: 05/08/19 Attend Phys: Nile Leyva MD Discharge: Date of : 54 Report #: [id number] THIS REPORT FOR: //name// CC: Nile Pacheco DATE OF SERVICE: 05/08/2019 Followup visit for diffuse polyarthropathy chronic intractable pain. This is a followup visit for pain management. She has been a longstanding patient of our clinic dating back nearly 24 years. We have provided both medication management for intermittent injections, which have been helpful in helping manage both osteoarthritis and on occasion low back pain with radiculopathy. She has diffuse pain generators including fibromyalgia with multiple muscle aches and pains as well as joint problems. She complains bitterly of pain in her shoulder joints. She responded very nicely to previous shoulder injections nearly 3-1/2 months ago. Today, the left shoulder is fine. I had injected it as well back in January. She is here today hopeful that I will repeat the injection in her right shoulder, which continues to hurt. Her second pain today is overlying the sacroiliac joint, which is exquisitely tender. It affects her standing, weightbearing and activities. She complains it is difficult for her to do many of her day-to-day activities. Simple housework, walking up and down steps, walking on flat level ground is also painful. Under terms of written opioid agreement I provided with oxycodone. She was last given oxycodone 5/325, 60 tablets 1 month ago. Her medication is due. Her MME is 15 morphine milligram equivalents per day maximum. She uses her medication carefully safeguarding them. We reviewed the prescription drug monitoring information today and there are no unexpected entries. She has had intermittent drug testing performed at her discretion. PQRS REVIEW: 1. Diffuse history of osteoarthritis involving bilateral shoulders, hips and knees. 2. BMI is slightly above last visit when she was 39.8. She is at 40.1. We discussed the importance of weight for chronic pain management. 3. Vital signs: Blood pressure 144/78, heart rate 102, respirations 16, O2 sat 95. 4. Pain intensity is 6/10 today involving shoulder and also the sacroiliac [facility] [address] [place] [address] PAIN MANAGEMENT CONSULTATION Name: MEERA SHEPARD Room #: REG BRITTNEY RhoadesAstonApoorvaAston#: [id number] Admission: 05/08/19 Attend Phys: Nile Leyva MD Discharge: Date of : 54 Report #: [id number] region where she is locally tender. 5. She is not a fall risk and has not fallen in the last 3 months. She is careful and she does use a cane. 6. No blood thinning medications. 7. She does have a history of hypertension treated by Dr. John, primary care physician. All medications are reviewed and reconciled from the electronic medical record. 8. She is on opioid agreement most recently signed in 2016. 9. She has completed an opioid risk tool and is in the low category 0/3. 10. Functional assessment score is 36 today. 11. She denies use of tobacco and alcohol. PHYSICAL EXAMINATION: GENERAL: Pleasant female, alert and oriented. She moves independently from sitting to standing position. Gait is markedly antalgic. VITAL SIGNS: As noted. EXTREMITEIS: She has tenderness across the right shoulder pain anteriorly. Pain with internal and external rotation as well as abduction. BACK: Examination of the low back reveals tenderness with exquisite nature overlying the left sacroiliac joint. This radiates down along the joint, but no further. She does not have radicular symptoms today. IMPRESSION: 1. Diffuse osteoarthritis. 2. Fibromyalgia. 3. Chronic low back pain with radiculopathy. 4. Management of high risk medication under terms of an opioid agreement. PROCEDURE: 1. Injection of right shoulder under fluoroscopic guidance. 2. Injection of the sacroiliac joint under fluoroscopic guidance. PROCEDURE #1: Sacroiliac injection on the left. The patient was taken to fluoroscopic suite, placed prone, skin prepped with ChloraPrep. Skin was anesthetized with 1% lidocaine. A 22-gauge spinal needle was then advanced into the posterior inferior capsule of the sacroiliac joint. A 0.25 mL of Omnipaque was injected and excellent spread of dye seen along the joint to confirm an arthrogram. It was then followed by 2 mL of 0.5% bupivacaine mixed with 40 mg triamcinolone. Needle was removed and the procedure was concluded. PROCEDURE #2: She was then rolled to her back and the skin was prepped overlying the right shoulder. Skin was anesthetized with 1% lidocaine and a 27-gauge needle. A 22-gauge needle was then advanced into the joint capsule and 1 mL of Omnipaque was injected on 2 occasions to obtain an arthrogram. Once arthrogram was obtained followed by 2 mL of 0.5% bupivacaine mixed with 40 mg triamcinolone. She tolerated both injections well. [address] [address] PAIN MANAGEMENT CONSULTATION Name: MEERA SHEPARD Room #: REG BRITTNEY Bender#: [id number] Admission: 05/08/19 Attend Phys: Nile Leyva MD Discharge: Date of : 54 Report #: [id number] There were no complications. Medications were renewed under terms of written agreement for 3 months. We plan to see her back in the pain clinic on an as needed basis at that point in time. By: [id number] Nile Leyva MD /nt
[2019-05-08 14:29] VITALS: BP 144/78
--- NOTE | 2019-05-08 14:43 | NUR ---
Pain Clinic Assessment: 1. History of Osteoarthritis: Left Upper Extremity Right Upper Extremity History of Rheumatoid Arthritis: DENIES 2. Height: 5 ft. 2 in. 157.5 cm. Weight: 219.4 lb. oz. 99.519 kg. Patient's BMI: 40.1 3. Vital Signs: BP: 144/78 Pulse: 102 Resp: 16 Temp: 02 Sat: 95 ECG Mon: 4. Pain Intensity: 6 back 5. Fall Risk: Dizziness: N Needs help standing or walking: N Fallen in the last 3 months: N Fall risk comments: CANE 6. Patient on Blood Thinner: None 7. History of Hypertension: Y 8. Opioid Therapy greater than 6 weeks: Y Opiate Contract Signed: 04/13/16 9. Risk Assessment Tool Provided: low risk 10. Functional Assessment Tool: 11. Recreational Drug Use: Never Drug Type: Tobacco Use: Former Smoker Tobacco Type: Amount or Packs/day: How Many Years: Alcohol Use: No Frequency: Quant:
== END | disposition home or self-care (01) ==
LOC: PAIN 06:55
DX: M53.3 Sacrococcygeal disorders, not elsewhere classified (principal); M25.511 Pain in right shoulder; G89.29 Other chronic pain; M54.16 Radiculopathy, lumbar region; M19.90 Unspecified osteoarthritis, unspecified site; M79.7 Fibromyalgia; J44.9 Chronic obstructive pulmonary disease, unspecified; Z98.890 Other specified postprocedural states; Z79.899 Other long term (current) drug therapy; Z79.891 Long term (current) use of opiate analgesic; Z87.891 Personal history of nicotine dependence; Z88.0 Allergy status to penicillin; Z88.2 Allergy status to sulfonamides; Z88.8 Allergy status to other drugs, medicaments and biological substances
CPT/HCPCS: 20610; G0260

== ENCOUNTER → 2019-07-24 | Outpatient (CLI) | payer OTHER ==
[~2019-07-24] VITALS: Ht 157.5 cm; Wt 95.3 kg
[~2019-07-24] MED LIST changes: +DORYX MPC120 MG PO; +PREDNISONE 20 M20 M1 PO
--- NOTE | ~2019-07-24 | HPC ---
[facility] [place] [place] [address] PAIN MANAGEMENT CONSULTATION Name: MEERA SHEPARD Room #: REG BRITTNEY DurandAston#: [id number] Admission: 07/24/19 Attend Phys: Nile Leyva MD Discharge: Date of : 54 Report #: [id number] THIS REPORT FOR: //name// CC: Nile Dean DATE OF SERVICE: 07/24/2019 CHIEF COMPLAINT: Right shoulder pain. The patient is a longstanding patient. I have seen her nearly 24 years back into the . She has multiple pain generators at this stage of her life. She has pain related to fibromyalgia, is morbidly obese and has pain in her joints. It is difficult for her to weight bear. She fell recently, landing on her right shoulder which was already painful. This has gotten worse now since the fall. I have injected her periodically providing some relief. Today, we decided that we will hold off on injections until a later date. Her last injection was in April. We discussed tincture of time as a way of helping that shoulder feel better and we discussed some exercises. MEDICATIONS: Reviewed and reconciled. PQRS: Positive for diffuse osteoarthritis. Shoulders are clearly the worst, but also weightbearing joints, hips and knees hurt her. Her BMI is 38.4, slightly down. Blood pressure 131/89, heart rate 94, respirations 20, O2 sat 93. She scores her pain as a 5/10. She is a fall risk, having fallen in the last 3 months and uses a cane. She was given precautions. She is on no blood thinning medications, but is treated for hypertension. She is on an opioid agreement signed in 2016 and reviewed the terms of that agreement today. She is at low risk for addiction by the opioid risk tool, which she scored once again today. Her functional assessment score is 36/70 suggesting that she manages fairly well with her pain. She denies use of tobacco, but continues to smoke and was counseled. She has been smoking for 33 years and finds it difficult to stop. PHYSICAL EXAMINATION: As noted. Her right shoulder is painful with all range of motion, locally tender anteriorly. Left shoulder is not bad. She has diffuse tenderness of the hips and knees. Multiple painful muscle groups are noted throughout the torso and also extremities consistent with fibromyalgia. IMPRESSION: 1. Chronic intractable pain, with opioid agreement. Medications renewed under terms of that agreement. She is on modest oxycodone 5/325 taken 1-[address] [address] PAIN MANAGEMENT CONSULTATION Name: MEERA SHEPARD [id number] Admission: 07/24/19 Attend Phys: Nile Leyva MD Discharge: Date of : 54 Report #: [id number] 2. Fibromyalgia. 3. Chronic low back pain with radiculopathy. 4. Severe osteoarthritis, bilateral joints, right worse than left after fall. PLAN: Continue with medication management. No injections at today's visit. By: [id number] Nile Leyva MD /nt
[2019-07-24 09:26] VITALS: BP 131/89
--- NOTE | 2019-07-24 09:32 | NUR ---
Pain Clinic Assessment: 1. History of Osteoarthritis: Left Upper Extremity Right Upper Extremity History of Rheumatoid Arthritis: DENIES 2. Height: 5 ft. 2 in. 157.5 cm. Weight: 210.0 lb. oz. 95.256 kg. Patient's BMI: 38.4 3. Vital Signs: BP: 131/89 Pulse: 94 Resp: 20 Temp: 02 Sat: 93 ECG Mon: 4. Pain Intensity: 5 5. Fall Risk: Dizziness: N Needs help standing or walking: N Fallen in the last 3 months: Y Fall risk comments: CANE 6. Patient on Blood Thinner: None 7. History of Hypertension: Y 8. Opioid Therapy greater than 6 weeks: Y Opiate Contract Signed: 04/13/16 9. Risk Assessment Tool Provided: low risk 10. Functional Assessment Tool: 11. Recreational Drug Use: Never Drug Type: Tobacco Use: Former Smoker Tobacco Type: Cigarettes Amount or Packs/day: How Many Years: 33 Alcohol Use: No Frequency: Quant:
== END ==
LOC: PAIN 06:51
DX: G89.4 Chronic pain syndrome (principal); M19.011 Primary osteoarthritis, right shoulder; Z79.891 Long term (current) use of opiate analgesic

== ENCOUNTER → 2019-11-23 | Outpatient (CLI) | payer OTHER ==
--- NOTE | 2019-11-23 14:50 | HPC ---
[facility] [place] [address] PAIN MANAGEMENT CONSULTATION Name: MEERA SHEPARD Room #: REG BRITTNEY Bender#: [id number] Admission: 11/23/19 Attend Phys: Hillary Dawkins Discharge: Date of : 54 Report #: [id number] THIS REPORT FOR: cc: Gerson Dean Theodore M. DO Hocker, Amanda CNS ~ CC: Nile Leyva MD DATE OF SERVICE: 11/23/2019 HISTORY OF PRESENT ILLNESS: This is a telemedicine appointment, this patient is in a long-term care facility. This appointment was from 10:40-10:55 via the telephone due to the fact the patient has no audiovisual capability in her long-term care facility room. CHIEF COMPLAINT: Right shoulder pain. HISTORY OF PRESENT ILLNESS: This is a pleasant 69-year-old female who I was speaking via the telephone today for a telemedicine appointment that she has consented to. The patient has recently moved into a long-term care facility, [facility], in early September. They are currently on lockdown due to the COVID virus. The patient states that she is in her room all day long, though she does have a roommate, which she is thankful for. She reports that she does eat in her room. Today, the patient is requesting refills of her oxycodone medication that she takes for her ongoing right shoulder pain. She is reporting her pain score at 7/10 today. She believes that the long-term care facility is only providing her with Tylenol, and she is wanting her refill of oxycodone 5/325. MEDICATIONS: They were reviewed and reconciled. No changes since her last appointment. ALLERGIES: PENICILLIN, TETRACYCLINE, ERYTHROMYCIN, IBUPROFEN, CIPRO, TETANUS, OXCARBAZEPINE, AND LEVAQUIN. PQRS: 1. She is positive for diffuse osteoarthritis of shoulders, hips, knees, weightbearing joints. Denies rheumatoid arthritis. 2. Height, weight and vital signs were deferred. Pain score is 7/10. 3. Fall risk. The patient denies any dizziness. She does need assistance with walking and she has fallen in the past 3 months. The patient states she is not on any blood thinners, but does take medicine for hypertension. 4. Her opioid therapy is greater than 6 weeks; therefore, she has an opioid signed contract on the chart, which we will discuss with the caregivers there today. Risk assessment tool is low. Functional assessment is 36/70. 5. Recreational drug use, she denies. She [place] a [place] [address] PAIN MANAGEMENT CONSULTATION Name: MEERA SHEPARD Room #: REG Chastity Bender#: [id number] Admission: 11/23/19 Attend Phys: Hillary LUCIE Dawkins Discharge: Date of : 54 Report #: [id number] drink alcohol. PHYSICAL EXAMINATION: GENERAL: This is mostly deferred due to telemedicine appointment today. The patient does state that her right shoulder is very painful in any activity that is performed. She does also have pain in her lower back as well. The patient is alert and orientated and answered all of my questions in complete sentences, rating her pain score 7/10 today. IMPRESSION: 1. Chronic intractable pain, multiple pain generators of osteoarthritis. 2. Fibromyalgia. 3. Chronic low back pain with radiculopathy. PLAN: 1. We discussed treatment options with the patient today. I did also speak with the nurse at [facility] that helps care for the patient. According to the prescription monitoring system, the doctors at her facility have been prescribing her oxycodone 5/325. The nurse did inform me that they are willing to take overriding that medication, allowing her to 2 tablets a day for pain. 2. I explained to the patient that she has been getting her oxycodone twice daily. The patient reports she is only getting Tylenol. I encouraged her to speak with the nurses regarding this. She may be having her pain pills with her regular scheduled medicines. 3. I did discuss possible right shoulder injections in the future for the patient by Dr. Nile Leyva. The patient reports that she is not having any problems with Clostridium difficile, which she has had in the past. The patient states that has resolved. Currently, she is not able to leave her facility due to COVID. I explained to her that in the future if she does need a shot and is able to leave that Dr. Leyva would gladly help her with her injections. 4. In the meantime, we will allow her long-term care facility to take overriding her oxycodone 5/325 two tablets a day. No prescriptions will be sent for this patient since she is residing in [facility]. <ELECTRONICALLY SIGNED> By: Hillary Dawkins 11/23/19 [id number] [id number] Hillary Dawkins /nt
== END ==
LOC: PAIN 06:52 → TELEPC 06:52 → PAIN 13:36
DX: M25.511 Pain in right shoulder (principal); G89.4 Chronic pain syndrome; M54.16 Radiculopathy, lumbar region; M79.7 Fibromyalgia; Z79.891 Long term (current) use of opiate analgesic; Z79.899 Other long term (current) drug therapy; Z88.0 Allergy status to penicillin; Z88.1 Allergy status to other antibiotic agents; Z88.8 Allergy status to other drugs, medicaments and biological substances; Z88.7 Allergy status to serum and vaccine